=== PATIENT | female | born 1980 | race American Indian/Alaskan Native ===

== ENCOUNTER 2020-03-07 19:27 | Emergency (ER) | payer MEDICAID ==
[2020-03-07] MEDS ORDERED: ASPIRIN 325 MG TAB PO ONE ×2 (19:47→23:35)
[2020-03-07 20:32] LABS: Hematocrit 29.9 % (30.3-42.9); Mean Corpuscular HGB Conc 34 % (30-34); Mean Corpuscular Volume 83 fl (79-97); Platelet Count 403 K/mm3 (140-440); Red Blood Count 3.59 M/mm3 (3.65-5.03); Red Cell Distribution Width 18.9 % (13.2-15.2)
--- NOTE | 2020-03-07 20:41 | XRay Report ---
CHEST 2 VIEWS INDICATION: Sternal chest pain radiating to left arm COMPARISON: FINDINGS: Support devices: None. Heart: Within normal limits. Lungs: No acute air space or interstitial disease. Pleura: No significant pleural effusion. No pneumothorax. Additional findings: None. IMPRESSION: 1. No acute findings. Signer Name: Lion Brian MD Signed: 03/07/2020 8:36 PM Workstation Name: [id number]
[2020-03-07 21:09] LABS: Total Cells Counted 100
[2020-03-07 21:10] LABS: Basophils % (Manual) 0 % (0.0-1.8)
[2020-03-07 21:11] LABS: Blood Urea Nitrogen 9 mg/dL (7-17); Calcium 9.3 mg/dL (8.4-10.2); Hemolysis Index 8; Platelet Estimate Consistent w Auto
[2020-03-07 21:12] LABS: Ovalocytes 2+
[2020-03-07 21:13] LABS: BUN/Creatinine Ratio 18
--- NOTE | 2020-03-07 23:24 | Emergency Department Report ---
ED Chest Pain HPI - General Chief Complaint: Chest Pain Stated Complaint: CHEST PAIN,DIZZINESS,POSS LOW BLOOD Time Seen by Provider: 03/07/20 23:07 Source: patient Mode of arrival: Ambulatory Limitations: No Limitations - History of Present Illness Initial Comments: Patient is 40 years old female with no significant past medical history except for anemia. Patient also reported history of hypertension long time ago but she not taking any medicine for more than 2 to 3 years. Patient stated that she was taking amlodipine. Patient presented to the ER complaining of left-sided chest pain pressure, intermittent associated with palpitation. Patient stated that the she thought this is might be her anemia. Patient also complaining of generalized fatigue headache sometimes. Patient found to have a blood pressure of 161/110 in triage. MD Complaint: chest pain -: days(s) (3) Onset: during rest, during exertion Pain Location: left chest Pain Radiation: LUE Severity: moderate Severity scale (0 -10): 4 Consistency: intermittent - Related Data Allergies Allergy/AdvReac Type Severity Reaction Status Date / Time iron Allergy Anaphylaxis Verified 03/07/20 19:45 Penicillins Allergy Anaphylaxis Verified 03/07/20 19:45 Heart Score - HEART Score History: Slightly suspicious EKG: Normal Age: < 45 Risk factors: 1-2 risk factors Troponin: < normal limit HEART Score: 1 - Critical Actions Critical Actions: 0-3 pts:0.9-1.7%risk of adverse cardiac event.Candidate for discharge ED Review of Systems ROS: Stated complaint: CHEST PAIN,DIZZINESS,POSS LOW BLOOD Other details as noted in HPI Comment: All other systems reviewed and negative Constitutional: denies: chills, fever Respiratory: denies: cough, shortness of breath, SOB with exertion, SOB at rest Cardiovascular: chest pain, palpitations Gastrointestinal: denies: abdominal pain, nausea, vomiting Musculoskeletal: denies: back pain Neurological: denies: headache, weakness, numbness, paresthesias, confusion ED Past Medical Hx - Past Medical History Previous Medical History?: Yes Additional medical history: Elliptocytosis and Blood Transfusion 2017 - Surgical History Past Surgical History?: Yes Additional Surgical History: D&C - Social History Smoking Status: Never Smoker Substance Use Type: None ED Physical Exam - General Limitations: No Limitations General appearance: alert, in no apparent distress - Head Head exam: Present: atraumatic, normocephalic, normal inspection - Eye Eye exam: Present: normal appearance - ENT ENT exam: Present: normal exam, normal orophraynx, mucous membranes moist - Neck Neck exam: Present: normal inspection, full ROM. Absent: tenderness, meningismus - Respiratory Respiratory exam: Present: normal lung sounds bilaterally - Cardiovascular Cardiovascular Exam: Present: regular rate, normal rhythm, normal heart sounds - GI/Abdominal GI/Abdominal exam: Present: soft, normal bowel sounds. Absent: distended, tenderness, guarding, rebound, rigid, organomegaly, mass, bruit, pulsatile mass, hernia - Extremities Exam Extremities exam: Present: normal inspection, full ROM, normal capillary refill. Absent: pedal edema, calf tenderness - Back Exam Back exam: Present: normal inspection, full ROM. Absent: CVA tenderness (R), CVA tenderness (L) - Neurological Exam Neurological exam: Present: alert, oriented X3, CN II-XII intact - Psychiatric Psychiatric exam: Present: normal mood - Skin Skin exam: Present: warm, intact, normal color ED Course Vital Signs 03/07/20 03/07/20 19:48 23:10 Temperature 98.3 F Pulse Rate 98 H 74 Respiratory 18 14 Rate Blood Pressure 161/100 Blood Pressure 153/89 [Left] O2 Sat by Pulse 100 100 Oximetry ED Medical Decision Making - Lab Data Result diagrams: 03/07/20 20:16 03/07/20 20:16 - EKG Data -: EKG Interpreted by Fl EKG shows normal: sinus rhythm Rate: normal - EKG Data Interpretation: no acute changes - Radiology Data Radiology results: report reviewed - Medical Decision Making Patient is 40 years old female with no significant past medical history except for anemia. Patient also reported history of hypertension long time ago but she not taking any medicine for more than 2 to 3 years. Patient stated that she was taking amlodipine. Patient presented to the ER complaining of left-sided chest pain pressure, intermittent associated with palpitation. Patient stated that the she thought this is might be her anemia. Patient also complaining of generalized fatigue headache sometimes. Patient found to have a blood pressure of 161/110 in triage. EKG is normal. Chest x-ray is negative for acute finding. Labs reviewed and is unremarkable including troponin x2. I believe patient symptom is most likely related to her elevated blood pressure however patient strongly advised to follow-up with her primary care physician for outpatient cardiac work-up. Patient also advised to return to the ER if she develop any new symptoms. Critical care attestation.: If time is entered above; I have spent that time in minutes in the direct care of this critically ill patient, excluding procedure time. ED Disposition Clinical Impression: Chest pain, Malignant hypertension Disposition: DC-01 TO HOME OR SELFCARE Is pt being admited?: No Condition: Stable Instructions: Chest Pain (ED), Hypertension (ED), Nonspecific Chest Pain, Adult, Hypertension, Adult Referrals: PRIMARY CARE, [Primary Care Provider] - 3-5 Days
[2020-03-07] MEDS ORDERED: cloNIDine 0.1 MG TAB PO ONE (23:26)
[2020-03-07] MEDS ORDERED: ASPIRIN 325 MG TAB ONE (23:28)
[2020-03-08 00:35] VITALS: BP 149/96
[2020-03-08] MEDS ORDERED: ASPIRIN 325 MG TAB PO SCH (10:00)
== END 2020-03-08 00:20 | disposition home or self-care (01) ==
LOC: ED 19:27
DX: R07.89 Other chest pain (principal); I10 Essential (primary) hypertension; Z88.0 Allergy status to penicillin; Z88.8 Allergy status to other drugs, medicaments and biological substances
CPT/HCPCS: 36415; 71046; 80048; 84484; 85007; 85025; 93005

== ENCOUNTER 2020-10-30 17:41 | Outpatient (CLI) | payer MEDICAID ==
[2020-10-30] MEDS ORDERED: LACTATED RINGERS 500 ML IV ONE (17:56)
[2020-10-30] MEDS ORDERED: ACETAMINOPHEN 500 MG TAB PO ONE (18:48)
[2020-10-30 19:27] LABS: Hematocrit 30.1 % (30.3-42.9); Hemoglobin 9.8 gm/dl (10.1-14.3); Mean Corpuscular HGB Conc 33 % (30-34); Mean Corpuscular Volume 85 fl (79-97); Red Blood Count 3.56 M/mm3 (3.65-5.03); Red Cell Distribution Width 16.9 % (13.2-15.2)
[2020-10-30 19:29] LABS: Platelet Count 268 K/mm3 (140-440)
[2020-10-30 19:30] LABS: Bilirubin,Urine NEG (Negative); Blood,Urine NEG (Negative); Color,Urine Yellow (Yellow); Mucus,Urine 3+ /HPF; Urobilinogen,Urine < 2.0 mg/dL (<2.0)
[2020-10-30 19:38] LABS: Alanine Aminotransferase 23 units/L (7-56); Uric Acid 3.7 mg/dL (3.5-7.6)
[2020-10-30 20:16] VITALS: BP 122/62
--- NOTE | 2020-11-01 17:50 | Electrocardiograph Report ---
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
== END 2020-10-30 20:48 | disposition home or self-care (01) ==
LOC: TRG 17:41 → APU 17:43 → TRG 20:48
PROVIDERS: ATTEND Obstetrics & Gynecology
DX: O13.2 Gestational [pregnancy-induced] hypertension without significant proteinuria, second trimester (principal); Z3A.20 20 weeks gestation of pregnancy
CPT/HCPCS: 36415; 59025; 81001; 82565; 83615; 84450; 84460; 84550; 85027; 93005; J7120

== ENCOUNTER 2020-11-22 22:05 | Outpatient (CLI) | payer MEDICAID ==
[2020-11-22] MEDS ORDERED: LACTATED RINGERS 500 ML IV ONE (22:19)
[2020-11-22] MEDS ORDERED: LACTATED RINGERS 1,000 ML ONE (23:12)
[2020-11-22] MEDS ORDERED: LACTATED RINGERS 1,000 ML IV ONE (23:14)
[2020-11-22 23:15] LABS: Bacteria,Urine 1+ /HPF (Negative); Bilirubin,Urine NEG (Negative); Blood,Urine SM (Negative); Color,Urine Yellow (Yellow); Mucus,Urine 1+ /HPF; Protein,Urine <15 mg/dL mg/dL (Negative); Urobilinogen,Urine < 2.0 mg/dL (<2.0)
[2020-11-22 23:20] VITALS: BP 110/66
[2020-11-23] LABS: Basophils % (Auto) 0.5 % (0.0-1.8); Eosinophils # (Auto) 0.2 K/mm3 (0.0-0.4); Hematocrit 27.6 % (30.3-42.9); Hemoglobin 9.3 gm/dl (10.1-14.3); Lymphocytes # (Auto) 1.7 K/mm3 (1.2-5.4); Lymphocytes % (Auto) 22.9 % (13.4-35.0); Mean Corpuscular HGB Conc 34 % (30-34); Mean Corpuscular Volume 85 fl (79-97); Monocytes # (Auto) 0.6 K/mm3 (0.0-0.8); Monocytes % (Auto) 7.5 % (0.0-7.3); Platelet Count 221 K/mm3 (140-440); Red Blood Count 3.24 M/mm3 (3.65-5.03)
[2020-11-23 00:28] LABS: Alanine Aminotransferase 10 units/L (7-56); Albumin 3.6 g/dL (3.9-5); Blood Urea Nitrogen 8 mg/dL (7-17); Calcium 8.8 mg/dL (8.4-10.2); Hemolysis Index 6
[2020-11-23 00:30] LABS: BUN/Creatinine Ratio 20
--- NOTE | 2020-11-23 01:12 | Event Note ---
Date: 11/23/20 (Pt feeling a little better) Pt is a 40 y.o. @ 24.1 wks. She presented to triage with c/o right upper abdominal pain and feeling tired. IV fluids and Pepcid ordered and given. An ultrasound of her gallbladder showed that she has a possible gallstone. After IV fluids and Pepcid pt states that she feels somewhat better. During her triage stay, her monitor tracing was appropriate for gestational age, no contractions noted. She denies ctxs, vaginal bleeding, LOF. Encouraged patient to keep follow up in the office. Number for GI ([facility]) provided and patient to make an appointment. She has a follow up OB appointment in the office on November 27, 2020 @ 0930am. Pt encouraged to keep this appointment.
[2020-11-23] MEDS ORDERED: FAMOTIDINE 20 MG/2 ML INJ IV ONE ×2 (01:15→22:42)
--- NOTE | 2020-11-23 04:19 | Ultrasound Report ---
ULTRASOUND ABDOMEN, LIMITED (RIGHT UPPER QUADRANT) INDICATION: with upper abdominal pain.. COMPARISON: None available. FINDINGS: Pancreas: Visualized portion shows no significant abnormality. Liver: No significant abnormality. Gallbladder: There is cholelithiasis without sonographic evidence of acute cholecystitis. Sonographi c Shafer's sign: Not performed. Bile ducts: No significant abnormality. Common Bile Duct measures 3.1 mm. Free fluid: None. Additional Findings: None. IMPRESSION: Cholelithiasis without sonographic evidence of acute cholecystitis or other significant abnormalities . Signer Name: Elton Jonas MD Signed: 11/23/2020 4:15 AM Workstation Name: [id number]
== END 2020-11-23 01:33 | disposition home or self-care (01) ==
LOC: TRG 22:05 → APU 22:06 → TRG 11-23 01:33
PROVIDERS: ATTEND Obstetrics & Gynecology
DX: O99.612 Diseases of the digestive system complicating pregnancy, second trimester (principal); K80.20 Calculus of gallbladder without cholecystitis without obstruction; O26.892 Other specified pregnancy related conditions, second trimester; R51.9 Headache, unspecified; O26.52 Maternal hypotension syndrome, second trimester; O99.012 Anemia complicating pregnancy, second trimester; D64.9 Anemia, unspecified; O99.342 Other mental disorders complicating pregnancy, second trimester; F41.9 Anxiety disorder, unspecified; F32.9 Major depressive disorder, single episode, unspecified; Z3A.24 24 weeks gestation of pregnancy
CPT/HCPCS: 36415; 59025; 76705; 80053; 81001; 85025; 96360; 96365; J7120; 96374

== ENCOUNTER 2021-02-05 12:49 | Outpatient (CLI) | payer MEDICAID ==
[2021-02-05] MEDS ORDERED: LACTATED RINGERS 500 ML IV ONE (13:53)
[2021-02-05 15:22] VITALS: BP 119/72
--- NOTE | 2021-02-05 16:56 | Ultrasound Report ---
ULTRASOUND OBSTETRIC LIMITED ULTRASOUND BIOPHYSICAL PROFILE INDICATION / CLINICAL INFORMATION: decreased movement. COMPARISON: None available. FINDINGS: BREATHING MOVEMENT = 2 GROSS BODY MOVEMENT = 2 TONE = 2 QUALITATIVE AMNIOTIC FLUID VOLUME = 2 TOTAL BIOPHYSICAL SCORE = 8/8 AMNIOTIC FLUID INDEX (cm) = 10.5 PRESENTATION: Cephalic. HEART RATE (beats per minute): 154 ADDITIONAL FINDINGS: None. IMPRESSION: 1. Biophysical Score = 8/8 Signer Name: Elton Jonas MD Signed: 02/05/2021 4:52 PM Workstation Name: [id number]
== END 2021-02-05 16:00 | disposition home or self-care (01) ==
LOC: TRG 12:49 → APU 12:51 → TRG 16:00
PROVIDERS: ATTEND Obstetrics & Gynecology
DX: Z34.93 Encounter for supervision of normal pregnancy, unspecified, third trimester (principal); Z3A.34 34 weeks gestation of pregnancy
CPT/HCPCS: 59025; 76815; 76819

== ENCOUNTER 2021-02-21 09:31 | Inpatient (IN) | payer MEDICAID ==
--- NOTE | 2021-02-21 09:53 | History and Physical Report ---
History of Present Illness Date of examination: 02/21/21 Date of admission: 02/21/2021 Chief complaint: scheduled induction History of present illness: EDC Confirmation: 03/14/2021 Past History : 7 Term Births: 4 Premature Births: 1 Living Children: 5 Para: 5 Mult. Births: 0 Prev : 0 Prev. attempt? 0 Aborta: 1 Elect. Ab: 0 Spont. Ab: 1 Ectopics: 0 # 1 Delivery date: 1998 Weeks Gestation: 38 labor: no Delivery type: Sex: Male weight: 6lbs Comments: IOL for PIH # 2 Delivery date: 2004 Weeks Gestation: 36 labor: yes Delivery type: Delivery location: [facility] Infant Sex: Female weight: 5-13 # 3 Delivery date: 2007 Weeks Gestation: 39 labor: no Delivery type: Sex: Female weight: 7lbs # 4 Delivery date: 04/2009 Delivery type: SAB Comments: D&C # 5 Delivery date: 2010 Weeks Gestation: FT labor: no Delivery type: Sex: Female weight: 8lbs Comments: pt states she had to receive 4 units of RBCs after this del kalina and that she also had "very high BP" # 6 Delivery date: 02/16/2012 Weeks Gestation: 40 Delivery type: Vaginal Anesthesia type: epidural Delivery location: [facility] Infant Sex: female weight: 8.69 Comments: anemia Risk Factors: Smoked Tobacco Use: Never smoker Smokeless Tobacco Use: Never Passive smoke exposure: no Drug use: no HIV high-risk behavior: low risk Caffeine use: 1 drinks per day Alcohol use: no Seatbelt use: 100 % Dietary Counseling: pn yes Past Medical History: Blood Transfusions several last one 2018 elliptocytosis Hypertension Gallstones Ovarian Cysts Past Medical History Abnormal PAP: negative JACQUE Exposure: negative Infertility: negative Uterine Anomaly: negative Uterine Surgery (not C/S): negative Other Gynecologic Problems: negative Social Hx: Patient is Smoking History: Patient has never smoked. Infection History Hx of STD: none HIV Risk Eval: low risk Hepatitis B Risk Eval: low risk Personal hx. of genital herpes: yes Partner hx. of genital herpes: yes Rash, Viral, or Febrile illness since last LMP? no Varicella/Chicken Pox Status: Previous Disease TB Risk: no Genetic History ADVANCED MATERNAL AGE Congenital Heart Defect: Mom: no Dad: no Kelsea Disease: Mom: no Dad: no Thalassemia Mom: no Dad: no Neural Tube Defect Mom: no Dad: no Down's Syndrome Mom: no Dad: no Rolando-Sachs Mom: no Dad: no Sickle Cell Disease/Trait Mom: no Dad: no Hemophilia Mom: no Dad: no Muscular Dystrophy Mom: no Dad: no Cystic Fibrosis Mom: no Dad: no Ilir Chorea Mom: no Dad: no Mental Retardation Mom: no Dad: no Fragile X Mom: no Dad: no Other Genetic/Chromosomal Disorder Mom: no Dad: no Child w/other defect Mom: no Dad: no Enviromental Exposures Xray Exposure: no Medication, drug, or alcohol use since LMP: no Chemical/Other Exposure: no Exposure to Cat Liter: no Hx of Parvovirus (Fifth Disease): no Occupational Exposure to Children: none Past History Past Medical History: hypertension, blood transfusion, other (see HPI) Past Surgical History: D&C, other (see HPI) [employer] History: herpes, other (see HPI) Family/Genetic History: other (see HPI) Social history: other (see HPI) - Obstetrical History Expected Date of Delivery: 03/14/21 Actual Gestation: 37 Week(s) 0 Day(s) : 7 Para: 5 Hx # Term Pregnancies: 4 Number of Pregnancies: 1 Spontaneous Abortions: 1 Induced : 0 Number of Living Children: 5 Medications and Allergies Allergies Allergy/AdvReac Type Severity Reaction Status Date / Time iron Allergy Anaphylaxis Verified 03/07/20 19:45 Penicillins Allergy Anaphylaxis Verified 03/07/20 19:45 labetalol Allergy Hives Uncoded 02/21/21 13:49 Home Medications Medication Instructions Recorded Confirmed Last Taken Type amLODIPine 5 mg PO DAILY #30 tab 03/07/20 Unknown Rx Nitrofurantoin [place]/M-Cryst 100 mg PO Q12HR #10 capsule 11/23/20 Unknown Rx [Macrobid CAP] Active Meds: Active Medications Acetaminophen (Acetaminophen 325 Mg Tab) 650 mg PO Q4H PRN PRN Reason: Pain, Mild (1-3) Butorphanol Tartrate (Butorphanol 2 Mg/1 Ml Inj) 2 mg IV Q2H PRN PRN Reason: Pain , Severe (7-10) Carboprost Tromethamine (Carboprost Tromethamine 250 Mcg/1 Ml Inj) 250 mcg IM ONCE PRN PRN Reason: Uterine Bleeding Ephedrine Sulfate (Ephedrine Sulfate 50 Mg/1 Ml Inj) 10 mg IV Q2M PRN PRN Reason: Hypotension Oxytocin/Sodium Chloride (Pitocin/Ns 30 Unit/500ml) 30 units in 500 mls @ 2 mls/hr IV TITR SETH; Protocol Lactated Ringer's (Lactated Ringers) 1,000 mls @ 125 mls/hr IV DIRECT SETH Oxytocin/Sodium Chloride (Pitocin/Ns 30 Unit/500ml) 30 units in 500 mls @ 40 mls/hr IV TITR SETH; Protocol Lidocaine (Lidocaine (2%) 20 Mg/1 Ml Vial 20 Ml Mdv) 20 ml INFILTRATI ONCE ONE Stop: 02/21/21 09:43 Loperamide HCl (Loperamide 2 Mg Cap) 2 mg PO ONCE PRN PRN Reason: give with Hemabate Mineral Oil (Mineral Oil 30 Ml Oral Liqd) 30 ml PO QHS PRN PRN Reason: Constipation Misoprostol (Misoprostol 200 Mcg Tab) 800 mcg NJ ONCE PRN PRN Reason: Uterine Bleeding Nalbuphine HCl (Nalbuphine 10 Mg/1 Ml Inj) 10 mg IV Q2H PRN PRN Reason: Pain, Moderate (4-6) Naloxone HCl (Naloxone 0.4 Mg/1 Ml Inj) 0.1 mg IV Q2MIN PRN PRN Reason: Res Rate </= 8 or 02 SAT < 92% Ondansetron HCl (Ondansetron 4 Mg/2 Ml Inj) 4 mg IV Q8H PRN PRN Reason: Nausea And Vomiting Oxytocin (Oxytocin 10 Unit/1 Ml Inj) 10 unit IM ONCE PRN PRN Reason: Uterine Bleeding Promethazine HCl (Promethazine 25 Mg Tab) 25 mg PO Q6H PRN PRN Reason: Nausea And Vomiting Terbutaline Sulfate (Terbutaline 1 Mg/1 Ml Inj) 0.25 mg SUB-Q ONCE PRN PRN Reason: Hyperstimulation/Hypertonicity Review of Systems All systems: negative Ears, nose, mouth and throat: headache - Physical Exam Breasts: Positive: deferred Cardiovascular: Regular rate Lungs: Positive: Normal air movement Abdomen: Positive: normal appearance, soft. Negative: tenderness, guarding, rigidity Genitourinary (Female): Positive: normal external genitalia, normal perenium Vulva: both: normal Vagina: Positive: normal moisture Uterus: Positive: normal size, normal contour, other (gravid) Anus/Rectum: Positive: normal perianal skin Extremities: Positive: normal - Obstetrical FHR: auscultation normal, category 1 Uterine Contraction Monitor Mode: External Cervical Dilatation: 1 (per Dr. Ding's exam) Cervical Effacement Percentage: 50 station: -3 Uterine Contraction Pattern: Irregular Uterine Tone Measurement Phase: Resting Results Result Diagrams: 02/21/21 10:36 02/21/21 10:36 All other labs normal. Tests: (1) RPR, Rfx Qn RPR/Confirm TP (998154) RPR Non Reactive Non Reactive *1 Tests: (2) HIV Ag/Ab with Reflex ([id number]) HIV Screen 4th Generation wRfx Non Reactive Non Reactive *2 Tests: (1) Ct, Ng, Trich vag by LARISSA ([id number]) Order Note: Clinical Information: SRC:VR SRC:UR Chlamydia by LARISSA Negative Negative *1 Gonococcus by LARISSA Negative Negative *2 Trich vag by LARISSA Negative Negative *3 Tests: (2) Strep Gp B LARISSA ([id number]) ! Strep Gp B LARISSA Negative Negative *4 Tests: (1) Profile I ([id number]) Order Note: Clinical Information: SRC:UR HBsAg Screen Negative Negative *1 RPR Non Reactive Non Reactive *2 Rubella Antibodies, IgG 3.87 index Immune >0.99 *3 Non-immune <0.90 Equivocal 0.90 - 0.99 Immune >0.99 ABO Grouping O *4 Rh Factor Positive *5 Please note: Prior records for this patient's ABO / Rh type are not available for additional verification. Antibody Screen Negative Negative *6 WBC 4.6 x10E3/uL 3.4-10.8 *7 RBC [L] 3.34 x10E6/uL 3.77-5.28 *8 Hemoglobin [L] 9.1 g/dL 11.1-15.9 *9 Hematocrit [L] 28.3 % 34.0-46.6 *10 MCV 85 fL 79-97 *11 MCH 27.2 pg 26.6-33.0 *12 MCHC 32.2 g/dL 31.5-35.7 *13 RDW [H] 18.1 % 11.7-15.4 *14 Platelets 374 x10E3/uL 150-450 *15 Neutrophils 73 % Not Estab. *16 Lymphs 18 % Not Estab. *17 Monocytes 7 % Not Estab. *18 Eos 2 % Not Estab. *19 Basos 0 % Not Estab. *20 ! Immature Cells <No Reported Value> *21 Neutrophils (Absolute) 3.3 x10E3/uL 1.4-7.0 *22 Lymphs (Absolute) 0.8 x10E3/uL 0.7-3.1 *23 Monocytes(Absolute) 0.3 x10E3/uL 0.1-0.9 *24 Eos (Absolute) 0.1 x10E3/uL 0.0-0.4 *25 Baso (Absolute) 0.0 x10E3/uL 0.0-0.2 *26 ! Immature Granulocytes 0 % Not Estab. *27 ! Immature Grans (Abs) 0.0 x10E3/uL 0.0-0.1 *28 ! NRBC <No Reported Value> *29 Hematology Comments: <No Reported Value> *30 Tests: (2) HB Solu + Rflx Fra ([id number]) Hemoglobin (Hgb) Solubility Negative Negative *31 Tests: (3) HIV Ag/Ab with Reflex ([id number]) HIV Screen 4th Generation wRfx Non Reactive Non Reactive *32 Tests: (4) Gest. Diabetes 1-Hr Screen ([id number]) ! Gestational Diabetes Screen 122 mg/dL 65-139 *33 According to ADA, a glucose threshold of >139 mg/dL after 50-gram load identifies approximately 80% of women with gestational diabetes mellitus, while the sensitivity is further increased to approximately 90% by a threshold of >129 mg/dL. Tests: (5) HCV Ab w/Rflx to Verification ([id number]) ! HCV Ab <0.1 s/co ratio 0.0-0.9 *34 Tests: (6) Comment: ([id number]) ! Comment: SPR *35 Non reactive HCV antibody screen is consistent with no HCV infection, unless recent infection is suspected or other evidence exists to indicate HCV infection. Tests: (7) Urine Culture, Routine ([id number]) Urine Culture, Routine Final report *36 Tests: (8) Result ([id number]) ! Result 1 "Result Below..." *37 RESULT: Lactobacillus species 25,000-50,000 colony forming units per mL Susceptibility not normally performed on this organism. Performed At: , [facility] [address] [id number] Fco Goodwin MD Phone: [phone] Assessment and Plan Pt presents for scheduled IOL recommended by [facility] for preeclampsia. GBS negative. POC d/w pt. Questions encouraged. No questions voiced. Pt verbalizes understanding and agrees to POC. Orders placed. Dr. Ding aware. - Patient Problems (1) 37 weeks gestation of Current Visit: Yes Status: Acute (2) Elderly multigravida Current Visit: Yes Status: Acute Plan to address problem: continuous efm and toco placenta to be sent to pathology after delivery (3) Chronic hypertension with superimposed preeclampsia Current Visit: Yes Status: Acute Plan to address problem: Home medication: Amlodipine 5mg PO PRN, pt reports last dose taken 2 months ago preeclampsia labs ordered monitor closely for ssx of worsening notify provider with any changes in status and if BP >160 systolic or >100 diastolic Hydralazine IV to be ordered if BP >160/100 (4) Hereditary elliptocytosis Current Visit: Yes Status: Acute
[2021-02-21] MEDS ORDERED: NalbUPHINE 10 MG/1 ML INJ IV PRN (10:00)
[2021-02-21] MEDS ORDERED: MINERAL OIL 30 ML ORAL LIQD PO PRN (10:00)
[2021-02-21] MEDS ORDERED: miSOPROStol 200 MCG TAB PR PRN (10:00)
[2021-02-21] MEDS ORDERED: CARBOPROST TROMETHAMINE 250 MCG/1 ML INJ IM PRN (10:00)
[2021-02-21] MEDS ORDERED: OXYTOCIN 10 UNIT/1 ML INJ IM PRN (10:00)
[2021-02-21] MEDS ORDERED: LOPERAMIDE 2 MG CAP PO PRN (10:00)
[2021-02-21] MEDS ORDERED: NALOXONE 0.4 MG/1 ML INJ IV PRN (10:00)
[2021-02-21] MEDS ORDERED: ePHEDrine SULFATE 50 MG/1 ML INJ IV PRN (10:00)
[2021-02-21] MEDS ORDERED: LIDOCAINE (2%) 20 MG/1 ML VIAL 20 ML MDV INFILTRATI SCH (10:00)
[2021-02-21] MEDS ORDERED: ACETAMINOPHEN 325 MG TAB PO PRN (10:00)
[2021-02-21] MEDS ORDERED: PROMETHAZINE 25 MG TAB PO PRN (10:00)
[2021-02-21] MEDS ORDERED: BUTORPHANOL 2 MG/1 ML INJ IV PRN (10:00)
[2021-02-21] MEDS ORDERED: OXYTOCIN DRIP 30 UNITS/500 ML BAG IV SCH (10:00)
[2021-02-21] MEDS ORDERED: TERBUTALINE 1 MG/1 ML INJ SUB-Q PRN (10:00)
[2021-02-21] MEDS ORDERED: ONDANSETRON 4 MG/2 ML INJ IV PRN (10:00)
[2021-02-21 11:06] LABS: Hemoglobin 9.5 gm/dl (10.1-14.3); Mean Corpuscular HGB Conc 33 % (30-34); Mean Corpuscular Volume 85 fl (79-97); Platelet Count 192 K/mm3 (140-440); Red Cell Distribution Width 16.9 % (13.2-15.2)
[2021-02-21 11:29] LABS: Alanine Aminotransferase 7 units/L (7-56); Uric Acid 3.8 mg/dL (3.5-7.6)
--- NOTE | 2021-02-21 11:30 | Event Note ---
Date: 02/21/21 Pt seen and evaluated d/w serial iol. BP currently in normal range. Will closely monitor and will start magnesium either with sever range blood pressures or active labor which ever one presents first. I discussed this with pt and and she expressed understanding. cx: /-3/post/ soft
[2021-02-21] MEDS: OXYTOCIN DRIP 30 UNITS/500 ML BAG IV SCH (14:00)
--- NOTE | 2021-02-21 18:36 | Progress Note ---
Assessment and Plan VSSAF; Pt resting. Reports regular contractions. SVE unchanged. FHT's Cat 1. POC d/w pt. Questions encouraged and addressed. Pt verbalizes understanding and agrees to POC. LOIS Blackwell notified. Please turn off Pitocin. Pt may shower and eat dinner. Place cervidil per protocol. - Patient Problems (1) 37 weeks gestation of Current Visit: Yes Status: Acute (2) Elderly multigravida Current Visit: Yes Status: Acute Plan to address problem: continuous efm and toco placenta to be sent to pathology after delivery (3) Chronic hypertension with superimposed preeclampsia Current Visit: Yes Status: Acute Plan to address problem: Home medication: Amlodipine 5mg PO PRN, pt reports last dose taken 2 months ago preeclampsia labs done monitor closely for ssx of worsening notify provider with any changes in status and if BP >160 systolic or >100 diastolic Hydralazine IV to be ordered if BP >160/100 (4) Hereditary elliptocytosis Current Visit: Yes Status: Acute (5) History of herpes simplex infection Current Visit: Yes Status: Acute Plan to address problem: valtrex ordered for HSV prophylaxis tx Subjective - Subjective Date of service: 02/21/21 Principal diagnosis: IUP @37wks, IOL for CHTN with superimposed Pre-eclampsia Interval history: EDC Confirmation: 03/14/2021 Past History : 7 Term Births: 4 Premature Births: 1 Living Children: 5 Para: 5 Mult. Births: 0 Prev : 0 Prev. attempt? 0 Aborta: 1 Elect. Ab: 0 Spont. Ab: 1 Ectopics: 0 # 1 Delivery date: 1998 Weeks Gestation: 38 labor: no Delivery type: Sex: Male weight: 6lbs Comments: IOL for PIH # 2 Delivery date: 2004 Weeks Gestation: 36 labor: yes Delivery type: Delivery location: [facility] Infant Sex: Female weight: 5-13 # 3 Delivery date: 2007 Weeks Gestation: 39 labor: no Delivery type: Sex: Female weight: 7lbs # 4 Delivery date: 04/2009 Delivery type: SAB Comments: D&C # 5 Delivery date: 2010 Weeks Gestation: FT labor: no Delivery type: Sex: Female weight: 8lbs Comments: pt states she had to receive 4 units of RBCs after this delivery and that she also had "very high BP" # 6 Delivery date: 02/16/2012 Weeks Gestation: 40 Delivery type: Vaginal Anesthesia type: epidural Delivery location: [facility] Infant Sex: female weight: 8.69 Comments: anemia Risk Factors: Smoked Tobacco Use: Never smoker Smokeless Tobacco Use: Never Passive smoke exposure: no Drug use: no HIV high-risk behavior: low risk Caffeine use: 1 drinks per day Alcohol use: no Seatbelt use: 100 % Dietary Counseling: pn yes Past Medical History: Blood Transfusions several last one 2018 elliptocytosis Hypertension Gallstones Ovarian Cysts Past Medical History Abnormal PAP: negative JACQUE Exposure: negative Infertility: negative Uterine Anomaly: negative Uterine Surgery (not C/S): negative Other Gynecologic Problems: negative Social Hx: Patient is Smoking History: Patient has never smoked. Infection History Hx of STD: none HIV Risk Eval: low risk Hepatitis B Risk Eval: low risk Personal hx. of genital herpes: yes Partner hx. of genital herpes: yes Rash, Viral, or Febrile illness since last LMP? no Varicella/Chicken Pox Status: Previous Disease TB Risk: no Genetic History ADVANCED MATERNAL AGE Congenital Heart Defect: Mom: no Dad: no Kelsea Disease: Mom: no Dad: no Thalassemia Mom: no Dad: no Neural Tube Defect Mom: no Dad: no Down's Syndrome Mom: no Dad: no Rolando-Sachs Mom: no Dad: no Sickle Cell Disease/Trait Mom: no Dad: no Hemophilia Mom: no Dad: no Muscular Dystrophy Mom: no Dad: no Cystic Fibrosis Mom: no Dad: no Ilir Chorea Mom: no Dad: no Mental Retardation Mom: no Dad: no Fragile X Mom: no Dad: no Other Genetic/Chromosomal Disorder Mom: no Dad: no Child w/other defect Mom: no Dad: no Enviromental Exposures Xray Exposure: no Medication, drug, or alcohol use since LMP: no Chemical/Other Exposure: no Exposure to Cat Liter: no Hx of Parvovirus (Fifth Disease): no Occupational Exposure to Children: none Patient reports: movement normal, contractions, no new complaints, no loss of fluid, no vaginal bleeding Objective - Vital Signs Vital Signs: Vital Signs - 12hr 02/21/21 02/21/21 02/21/21 10:27 10:32 10:37 Temperature Pulse Rate 87 82 79 Respiratory Rate Blood Pressure Blood Pressure [Left] O2 Sat by Pulse 100 100 100 Oximetry O2 Sat by Pulse Oximetry [ Bilateral] 02/21/21 02/21/21 02/21/21 10:42 11:03 11:08 Temperature Pulse Rate 83 82 75 Respiratory Rate Blood Pressure 136/74 Blood Pressure [Left] O2 Sat by Pulse 100 100 99 Oximetry O2 Sat by Pulse Oximetry [ Bilateral] 02/21/21 02/21/21 02/21/21 11:13 11:18 11:23 Temperature Pulse Rate 83 78 79 Respiratory Rate Blood Pressure 122/61 Blood Pressure [Left] O2 Sat by Pulse 100 99 100 Oximetry O2 Sat by Pulse Oximetry [ Bilateral] 02/21/21 02/21/21 02/21/21 11:28 11:33 11:38 Temperature Pulse Rate 82 79 79 Respiratory Rate Blood Pressure 117/60 Blood Pressure [Left] O2 Sat by Pulse 99 99 99 Oximetry O2 Sat by Pulse Oximetry [ Bilateral] 02/21/21 02/21/21 02/21/21 11:43 11:48 11:50 Temperature Pulse Rate 80 85 81 Respiratory Rate Blood Pressure 131/65 Blood Pressure [Left] O2 Sat by Pulse 100 99 Oximetry O2 Sat by Pulse Oximetry [ Bilateral] 02/21/21 02/21/21 02/21/21 11:53 11:58 12:02 Temperature Pulse Rate 85 86 80 Respiratory Rate Blood Pressure 127/62 Blood Pressure [Left] O2 Sat by Pulse 99 99 Oximetry O2 Sat by Pulse Oximetry [ Bilateral] 02/21/21 02/21/21 02/21/21 12:03 12:08 12:13 Temperature Pulse Rate 82 73 80 Respiratory Rate Blood Pressure Blood Pressure [Left] O2 Sat by Pulse 98 100 99 Oximetry O2 Sat by Pulse Oximetry [ Bilateral] 02/21/21 02/21/21 02/21/21 12:17 12:18 12:23 Temperature 98.1 F Pulse Rate 75 75 74 Respiratory 20 Rate Blood Pressure 131/65 Blood Pressure 131/65 [Left] O2 Sat by Pulse 100 94 Oximetry O2 Sat by Pulse Oximetry [ Bilateral] 02/21/21 02/21/21 02/21/21 12:28 12:31 12:33 Temperature Pulse Rate 79 83 82 Respiratory Rate Blood Pressure 138/79 Blood Pressure [Left] O2 Sat by Pulse 100 94 98 Oximetry O2 Sat by Pulse Oximetry [ Bilateral] 02/21/21 02/21/21 02/21/21 12:38 12:42 12:43 Temperature Pulse Rate 78 73 Respiratory Rate Blood Pressure Blood Pressure [Left] O2 Sat by Pulse 100 100 Oximetry O2 Sat by Pulse 100 Oximetry [ Bilateral] 02/21/21 02/21/21 02/21/21 12:48 12:53 12:58 Temperature Pulse Rate 79 72 73 Respiratory Rate Blood Pressure Blood Pressure [Left] O2 Sat by Pulse 100 100 100 Oximetry O2 Sat by Pulse Oximetry [ Bilateral] 02/21/21 02/21/21 02/21/21 13:00 13:03 13:08 Temperature Pulse Rate 88 69 69 Respiratory Rate Blood Pressure Blood Pressure [Left] O2 Sat by Pulse 90 100 100 Oximetry O2 Sat by Pulse Oximetry [ Bilateral] 02/21/21 02/21/21 02/21/21 13:13 13:18 13:26 Temperature Pulse Rate 68 72 84 Respiratory Rate Blood Pressure Blood Pressure [Left] O2 Sat by Pulse 100 100 95 Oximetry O2 Sat by Pulse Oximetry [ Bilateral] 02/21/21 02/21/21 02/21/21 13:31 13:36 13:41 Temperature Pulse Rate 69 66 68 Respiratory Rate Blood Pressure Blood Pressure [Left] O2 Sat by Pulse 100 100 100 Oximetry O2 Sat by Pulse Oximetry [ Bilateral] 02/21/21 02/21/21 02/21/21 13:46 13:51 13:56 Temperature Pulse Rate 69 75 90 Respiratory Rate Blood Pressure Blood Pressure [Left] O2 Sat by Pulse 100 100 100 Oximetry O2 Sat by Pulse Oximetry [ Bilateral] 02/21/21 02/21/21 02/21/21 14:01 14:03 14:06 Temperature Pulse Rate 79 79 82 Respiratory Rate Blood Pressure 137/78 Blood Pressure [Left] O2 Sat by Pulse 100 100 Oximetry O2 Sat by Pulse Oximetry [ Bilateral] 02/21/21 02/21/21 02/21/21 14:11 14:16 14:18 Temperature Pulse Rate 74 84 82 Respiratory Rate Blood Pressure 133/80 Blood Pressure [Left] O2 Sat by Pulse 100 99 Oximetry O2 Sat by Pulse Oximetry [ Bilateral] 02/21/21 02/21/21 02/21/21 14:21 14:26 14:30 Temperature 98.2 F Pulse Rate 72 77 Respiratory Rate Blood Pressure Blood Pressure [Left] O2 Sat by Pulse 100 99 Oximetry O2 Sat by Pulse Oximetry [ Bilateral] 02/21/21 02/21/21 02/21/21 14:31 14:36 14:41 Temperature Pulse Rate 82 81 84 Respiratory Rate Blood Pressure Blood Pressure [Left] O2 Sat by Pulse 99 100 100 Oximetry O2 Sat by Pulse Oximetry [ Bilateral] 02/21/21 02/21/21 02/21/21 14:46 14:48 14:51 Temperature Pulse Rate 83 80 83 Respiratory Rate Blood Pressure 117/56 Blood Pressure [Left] O2 Sat by Pulse 100 100 Oximetry O2 Sat by Pulse Oximetry [ Bilateral] 02/21/21 02/21/21 02/21/21 14:56 15:01 15:02 Temperature Pulse Rate 83 82 82 Respiratory Rate Blood Pressure 117/57 Blood Pressure [Left] O2 Sat by Pulse 100 100 Oximetry O2 Sat by Pulse Oximetry [ Bilateral] 02/21/21 02/21/21 02/21/21 15:06 15:11 15:16 Temperature Pulse Rate 81 90 80 Respiratory Rate Blood Pressure Blood Pressure [Left] O2 Sat by Pulse 100 100 99 Oximetry O2 Sat by Pulse Oximetry [ Bilateral] 02/21/21 02/21/21 02/21/21 15:17 15:21 15:31 Temperature Pulse Rate 83 86 84 Respiratory Rate Blood Pressure 111/57 Blood Pressure [Left] O2 Sat by Pulse 99 100 Oximetry O2 Sat by Pulse Oximetry [ Bilateral] 02/21/21 02/21/21 02/21/21 15:33 15:36 15:41 Temperature Pulse Rate 83 77 72 Respiratory Rate Blood Pressure 134/74 Blood Pressure [Left] O2 Sat by Pulse 100 100 Oximetry O2 Sat by Pulse Oximetry [ Bilateral] 02/21/21 02/21/21 02/21/21 15:46 15:49 15:51 Temperature Pulse Rate 76 76 78 Respiratory Rate Blood Pressure 130/69 Blood Pressure [Left] O2 Sat by Pulse 99 99 Oximetry O2 Sat by Pulse Oximetry [ Bilateral] 02/21/21 02/21/21 02/21/21 15:56 16:01 16:03 Temperature Pulse Rate 78 89 82 Respiratory Rate Blood Pressure 116/63 Blood Pressure [Left] O2 Sat by Pulse 99 98 Oximetry O2 Sat by Pulse Oximetry [ Bilateral] 02/21/21 02/21/21 02/21/21 16:06 16:11 16:16 Temperature Pulse Rate 89 86 75 Respiratory Rate Blood Pressure Blood Pressure [Left] O2 Sat by Pulse 99 100 100 Oximetry O2 Sat by Pulse Oximetry [ Bilateral] 02/21/21 02/21/21 02/21/21 16:17 16:21 16:29 Temperature Pulse Rate 80 83 78 Respiratory Rate Blood Pressure 127/69 Blood Pressure [Left] O2 Sat by Pulse 100 100 Oximetry O2 Sat by Pulse Oximetry [ Bilateral] 02/21/21 02/21/21 02/21/21 16:34 16:39 16:44 Temperature Pulse Rate 75 76 76 Respiratory Rate Blood Pressure Blood Pressure [Left] O2 Sat by Pulse 100 100 100 Oximetry O2 Sat by Pulse Oximetry [ Bilateral] 02/21/21 02/21/21 02/21/21 16:48 16:49 16:54 Temperature Pulse Rate 70 81 82 Respiratory Rate Blood Pressure 126/70 Blood Pressure [Left] O2 Sat by Pulse 100 100 Oximetry O2 Sat by Pulse Oximetry [ Bilateral] 02/21/21 02/21/21 02/21/21 16:59 17:03 17:04 Temperature Pulse Rate 76 82 86 Respiratory Rate Blood Pressure 151/80 Blood Pressure [Left] O2 Sat by Pulse 100 100 Oximetry O2 Sat by Pulse Oximetry [ Bilateral] 02/21/21 02/21/21 02/21/21 17:09 17:14 17:19 Temperature Pulse Rate 79 78 91 H Respiratory Rate Blood Pressure 125/74 Blood Pressure [Left] O2 Sat by Pulse 100 100 100 Oximetry O2 Sat by Pulse Oximetry [ Bilateral] 02/21/21 02/21/21 02/21/21 17:24 17:29 17:34 Temperature Pulse Rate 82 89 83 Respiratory Rate Blood Pressure 130/64 Blood Pressure [Left] O2 Sat by Pulse 100 99 98 Oximetry O2 Sat by Pulse Oximetry [ Bilateral] 02/21/21 02/21/21 02/21/21 17:39 17:44 17:48 Temperature Pulse Rate 83 80 80 Respiratory Rate Blood Pressure 133/66 Blood Pressure [Left] O2 Sat by Pulse 99 99 Oximetry O2 Sat by Pulse Oximetry [ Bilateral] 02/21/21 02/21/21 02/21/21 17:49 17:54 17:59 Temperature Pulse Rate 79 76 77 Respiratory Rate Blood Pressure Blood Pressure [Left] O2 Sat by Pulse 100 100 99 Oximetry O2 Sat by Pulse Oximetry [ Bilateral] 02/21/21 02/21/21 02/21/21 18:02 18:04 18:09 Temperature Pulse Rate 76 77 75 Respiratory Rate Blood Pressure 123/60 Blood Pressure [Left] O2 Sat by Pulse 99 99 Oximetry O2 Sat by Pulse Oximetry [ Bilateral] 02/21/21 02/21/21 02/21/21 18:14 18:19 18:24 Temperature Pulse Rate 78 74 75 Respiratory Rate Blood Pressure 135/74 Blood Pressure [Left] O2 Sat by Pulse 99 99 99 Oximetry O2 Sat by Pulse Oximetry [ Bilateral] 02/21/21 18:29 Temperature Pulse Rate 75 Respiratory Rate Blood Pressure Blood Pressure [Left] O2 Sat by Pulse 100 Oximetry O2 Sat by Pulse Oximetry [ Bilateral] - Exam Breasts: deferred Cardiovascular: Regular rate Lungs: Normal air movement Abdomen: Present: normal appearance, soft Vulva: both: normal Uterus: Present: normal, other (gravid) FHR: auscultation normal, category 1 Uterine Contraction Monitor Mode: External Cervical Dilatation: 1 Cervical Effacement Percentage: 50 station: -3 Uterine Contraction Frequency (min): 2 Uterine Contraction Pattern: Regular Uterine Tone Measurement Phase: Resting Extremities: normal - Labs Labs: Abnormal Labs 02/21/21 02/21/21 10:36 10:36 RBC 3.40 L Hgb 9.5 L Hct 29.0 L RDW 16.9 H Creatinine 0.3 L Lactate Dehydrogenase 342 H Laboratory Results - last 24 hr 02/21/21 02/21/21 02/21/21 10:36 10:36 10:36 WBC 5.0 RBC 3.40 L Hgb 9.5 L Hct 29.0 L MCV 85 MCH 28 MCHC 33 RDW 16.9 H Plt Count 192 Creatinine Estimated GFR Uric Acid AST ALT Lactate Dehydrogenase Syphilis IgG Antibody Nonreactive Blood Type O POSITIVE Antibody Screen Negative 02/21/21 10:36 WBC RBC Hgb Hct MCV MCH MCHC RDW Plt Count Creatinine 0.3 L Estimated GFR > 60 Uric Acid 3.8 AST 20 ALT 7 Lactate Dehydrogenase 342 H Syphilis IgG Antibody Blood Type Antibody Screen
[2021-02-21] MEDS ORDERED: DINOPROSTONE 10 MG VAG SUPP VG ONE (20:30)
[2021-02-21] MEDS ORDERED: valACYclovir 500 MG TAB PO SCH (22:00)
[2021-02-22] MEDS ORDERED: BICITRA ORAL LIQD 30ML PO ONE (02:32)
[2021-02-22] MEDS ORDERED: ACETAMINOPHEN 500 MG TAB PO PRN (05:50)
[2021-02-22] MEDS: LACTATED RINGERS 1,000 ML IV SCH ×2 (06:35→19:08)
--- NOTE | 2021-02-22 08:09 | Progress Note ---
Assessment and Plan A: 41 y.o. @ 37.1 wks. Last cervical exam /-3 @ 1800. Unable to tolerate vaginal exam. P: Early epidural placement. Start Pitocin per protocol. Will attempted to place Cook's Catheter after epidural placement. Subjective - Subjective Date of service: 02/22/21 Principal diagnosis: IUP @37.1 wks, IOL for CHTN with superimposed Pre-eclampsia Patient reports: movement normal, contractions, no new complaints, no loss of fluid, no vaginal bleeding Objective - Vital Signs Vital Signs: Vital Signs - 12hr 02/21/21 02/21/21 02/21/21 20:12 20:17 20:19 Temperature Pulse Rate 75 78 71 Respiratory Rate Blood Pressure 134/71 Blood Pressure [Left] O2 Sat by Pulse 99 100 Oximetry O2 Sat by Pulse Oximetry [ Bilateral] 02/21/21 02/21/21 02/21/21 20:22 20:27 20:32 Temperature Pulse Rate 73 78 77 Respiratory Rate Blood Pressure Blood Pressure [Left] O2 Sat by Pulse 100 99 99 Oximetry O2 Sat by Pulse Oximetry [ Bilateral] 02/21/21 02/21/21 02/21/21 20:34 20:37 20:42 Temperature Pulse Rate 75 84 81 Respiratory Rate Blood Pressure 150/85 Blood Pressure [Left] O2 Sat by Pulse 100 100 Oximetry O2 Sat by Pulse Oximetry [ Bilateral] 02/21/21 02/21/21 02/21/21 20:47 20:49 20:52 Temperature Pulse Rate 83 78 75 Respiratory Rate Blood Pressure 127/75 Blood Pressure [Left] O2 Sat by Pulse 100 100 Oximetry O2 Sat by Pulse Oximetry [ Bilateral] 02/21/21 02/21/21 02/21/21 20:57 21:02 21:03 Temperature Pulse Rate 77 75 77 Respiratory Rate Blood Pressure 129/82 Blood Pressure [Left] O2 Sat by Pulse 100 100 Oximetry O2 Sat by Pulse Oximetry [ Bilateral] 02/21/21 02/21/21 02/21/21 21:07 21:12 21:17 Temperature Pulse Rate 103 H 76 78 Respiratory Rate Blood Pressure Blood Pressure [Left] O2 Sat by Pulse 100 100 100 Oximetry O2 Sat by Pulse Oximetry [ Bilateral] 02/21/21 02/21/21 02/21/21 21:20 21:22 21:27 Temperature Pulse Rate 78 79 78 Respiratory Rate Blood Pressure 132/95 Blood Pressure [Left] O2 Sat by Pulse 100 100 Oximetry O2 Sat by Pulse Oximetry [ Bilateral] 02/21/21 02/21/21 02/21/21 21:32 21:33 21:37 Temperature Pulse Rate 78 75 75 Respiratory Rate Blood Pressure 135/74 Blood Pressure [Left] O2 Sat by Pulse 100 100 Oximetry O2 Sat by Pulse Oximetry [ Bilateral] 02/21/21 02/21/21 02/21/21 21:42 21:47 21:52 Temperature Pulse Rate 75 75 79 Respiratory Rate Blood Pressure 141/79 Blood Pressure [Left] O2 Sat by Pulse 100 100 100 Oximetry O2 Sat by Pulse Oximetry [ Bilateral] 02/21/21 02/21/21 02/21/21 21:57 22:02 22:07 Temperature Pulse Rate 78 71 71 Respiratory Rate Blood Pressure 135/73 Blood Pressure [Left] O2 Sat by Pulse 98 100 100 Oximetry O2 Sat by Pulse Oximetry [ Bilateral] 02/21/21 02/21/21 02/21/21 22:12 22:17 22:22 Temperature Pulse Rate 77 96 H 78 Respiratory Rate Blood Pressure Blood Pressure [Left] O2 Sat by Pulse 100 100 100 Oximetry O2 Sat by Pulse Oximetry [ Bilateral] 02/21/21 02/21/21 02/21/21 22:27 22:32 22:37 Temperature Pulse Rate 72 72 75 Respiratory Rate Blood Pressure 134/73 Blood Pressure [Left] O2 Sat by Pulse 100 100 99 Oximetry O2 Sat by Pulse Oximetry [ Bilateral] 02/21/21 02/21/21 02/21/21 22:42 22:47 22:52 Temperature Pulse Rate 73 76 75 Respiratory Rate Blood Pressure 137/66 Blood Pressure [Left] O2 Sat by Pulse 100 99 99 Oximetry O2 Sat by Pulse Oximetry [ Bilateral] 02/21/21 02/21/21 02/21/21 22:57 23:02 23:07 Temperature Pulse Rate 77 76 77 Respiratory Rate Blood Pressure 139/67 Blood Pressure [Left] O2 Sat by Pulse 99 99 98 Oximetry O2 Sat by Pulse Oximetry [ Bilateral] 02/21/21 02/21/21 02/21/21 23:12 23:17 23:22 Temperature Pulse Rate 78 90 83 Respiratory Rate Blood Pressure 128/66 Blood Pressure [Left] O2 Sat by Pulse 99 97 100 Oximetry O2 Sat by Pulse Oximetry [ Bilateral] 02/21/21 02/21/21 02/21/21 23:27 23:32 23:37 Temperature Pulse Rate 77 85 77 Respiratory Rate Blood Pressure 121/60 Blood Pressure [Left] O2 Sat by Pulse 100 99 99 Oximetry O2 Sat by Pulse Oximetry [ Bilateral] 02/21/21 02/21/21 02/21/21 23:42 23:47 23:48 Temperature Pulse Rate 82 81 81 Respiratory Rate Blood Pressure 125/65 Blood Pressure [Left] O2 Sat by Pulse 99 100 Oximetry O2 Sat by Pulse Oximetry [ Bilateral] 02/21/21 02/21/21 02/22/21 23:52 23:57 00:00 Temperature 98.0 F Pulse Rate 82 78 Respiratory Rate Blood Pressure Blood Pressure [Left] O2 Sat by Pulse 99 98 Oximetry O2 Sat by Pulse Oximetry [ Bilateral] 02/22/21 02/22/21 02/22/21 00:02 00:03 00:07 Temperature Pulse Rate 78 80 84 Respiratory Rate Blood Pressure 116/57 Blood Pressure [Left] O2 Sat by Pulse 98 98 Oximetry O2 Sat by Pulse Oximetry [ Bilateral] 02/22/21 02/22/21 02/22/21 00:12 00:17 00:18 Temperature Pulse Rate 89 96 H 93 H Respiratory Rate Blood Pressure 137/70 Blood Pressure [Left] O2 Sat by Pulse 96 96 Oximetry O2 Sat by Pulse Oximetry [ Bilateral] 02/22/21 02/22/21 02/22/21 00:22 00:27 00:56 Temperature Pulse Rate 81 85 75 Respiratory Rate Blood Pressure Blood Pressure [Left] O2 Sat by Pulse 99 99 99 Oximetry O2 Sat by Pulse Oximetry [ Bilateral] 02/22/21 02/22/21 02/22/21 01:00 01:01 01:06 Temperature 98.5 F Pulse Rate 75 76 Respiratory Rate Blood Pressure Blood Pressure [Left] O2 Sat by Pulse 99 99 Oximetry O2 Sat by Pulse Oximetry [ Bilateral] 02/22/21 02/22/21 02/22/21 01:08 01:11 01:16 Temperature Pulse Rate 80 82 76 Respiratory Rate Blood Pressure 134/74 Blood Pressure [Left] O2 Sat by Pulse 100 99 Oximetry O2 Sat by Pulse Oximetry [ Bilateral] 02/22/21 02/22/21 02/22/21 01:17 01:21 01:26 Temperature Pulse Rate 79 79 76 Respiratory Rate Blood Pressure 134/79 Blood Pressure [Left] O2 Sat by Pulse 99 100 Oximetry O2 Sat by Pulse Oximetry [ Bilateral] 02/22/21 02/22/21 02/22/21 01:31 01:32 01:36 Temperature Pulse Rate 78 76 79 Respiratory Rate Blood Pressure 133/75 Blood Pressure [Left] O2 Sat by Pulse 99 99 Oximetry O2 Sat by Pulse Oximetry [ Bilateral] 02/22/21 02/22/21 02/22/21 01:41 01:46 01:48 Temperature Pulse Rate 76 82 73 Respiratory Rate Blood Pressure 134/73 Blood Pressure [Left] O2 Sat by Pulse 99 99 Oximetry O2 Sat by Pulse Oximetry [ Bilateral] 02/22/21 02/22/21 02/22/21 01:51 01:56 02:01 Temperature Pulse Rate 73 72 72 Respiratory Rate Blood Pressure Blood Pressure [Left] O2 Sat by Pulse 99 99 99 Oximetry O2 Sat by Pulse Oximetry [ Bilateral] 02/22/21 02/22/21 02/22/21 02:04 02:06 02:11 Temperature Pulse Rate 80 77 80 Respiratory Rate Blood Pressure 148/127 Blood Pressure [Left] O2 Sat by Pulse 100 99 Oximetry O2 Sat by Pulse Oximetry [ Bilateral] 02/22/21 02/22/21 02/22/21 02:16 02:21 02:26 Temperature Pulse Rate 84 79 84 Respiratory Rate Blood Pressure 143/68 Blood Pressure [Left] O2 Sat by Pulse 100 100 99 Oximetry O2 Sat by Pulse Oximetry [ Bilateral] 02/22/21 02/22/21 02/22/21 02:31 02:36 02:41 Temperature Pulse Rate 74 81 Respiratory Rate Blood Pressure Blood Pressure [Left] O2 Sat by Pulse 95 100 100 Oximetry O2 Sat by Pulse Oximetry [ Bilateral] 02/22/21 02/22/21 02/22/21 02:46 02:51 02:56 Temperature Pulse Rate 75 79 71 Respiratory Rate Blood Pressure 134/72 Blood Pressure [Left] O2 Sat by Pulse 99 99 100 Oximetry O2 Sat by Pulse Oximetry [ Bilateral] 02/22/21 02/22/21 02/22/21 03:01 03:06 03:11 Temperature Pulse Rate 79 81 74 Respiratory Rate Blood Pressure Blood Pressure [Left] O2 Sat by Pulse 100 99 100 Oximetry O2 Sat by Pulse Oximetry [ Bilateral] 02/22/21 02/22/21 02/22/21 03:16 03:17 03:21 Temperature Pulse Rate 74 76 79 Respiratory Rate Blood Pressure 141/74 Blood Pressure [Left] O2 Sat by Pulse 100 100 Oximetry O2 Sat by Pulse Oximetry [ Bilateral] 02/22/21 02/22/21 02/22/21 03:26 03:31 03:36 Temperature Pulse Rate 77 79 79 Respiratory Rate Blood Pressure Blood Pressure [Left] O2 Sat by Pulse 100 100 100 Oximetry O2 Sat by Pulse Oximetry [ Bilateral] 02/22/21 02/22/21 02/22/21 03:41 03:46 03:51 Temperature Pulse Rate 76 77 81 Respiratory Rate Blood Pressure 124/63 Blood Pressure [Left] O2 Sat by Pulse 100 100 99 Oximetry O2 Sat by Pulse Oximetry [ Bilateral] 02/22/21 02/22/21 02/22/21 03:56 04:01 04:06 Temperature Pulse Rate 89 82 78 Respiratory Rate Blood Pressure Blood Pressure [Left] O2 Sat by Pulse 100 100 100 Oximetry O2 Sat by Pulse Oximetry [ Bilateral] 02/22/21 02/22/21 02/22/21 04:11 04:16 04:17 Temperature Pulse Rate 75 79 80 Respiratory Rate Blood Pressure 139/76 Blood Pressure [Left] O2 Sat by Pulse 99 99 Oximetry O2 Sat by Pulse Oximetry [ Bilateral] 02/22/21 02/22/21 02/22/21 04:21 04:26 04:31 Temperature Pulse Rate 85 96 H 83 Respiratory Rate Blood Pressure Blood Pressure [Left] O2 Sat by Pulse 99 100 97 Oximetry O2 Sat by Pulse Oximetry [ Bilateral] 02/22/21 02/22/21 02/22/21 04:36 04:39 04:41 Temperature Pulse Rate 80 94 H 85 Respiratory Rate Blood Pressure Blood Pressure [Left] O2 Sat by Pulse 97 93 97 Oximetry O2 Sat by Pulse Oximetry [ Bilateral] 02/22/21 02/22/21 02/22/21 04:46 04:51 04:55 Temperature Pulse Rate 84 85 97 H Respiratory Rate Blood Pressure 134/69 Blood Pressure [Left] O2 Sat by Pulse 96 99 94 Oximetry O2 Sat by Pulse Oximetry [ Bilateral] 02/22/21 02/22/21 02/22/21 04:56 05:01 05:06 Temperature Pulse Rate 98 H 87 90 Respiratory Rate Blood Pressure Blood Pressure [Left] O2 Sat by Pulse 95 97 96 Oximetry O2 Sat by Pulse Oximetry [ Bilateral] 02/22/21 02/22/21 02/22/21 05:11 05:16 05:21 Temperature Pulse Rate 87 87 93 H Respiratory Rate Blood Pressure 140/74 Blood Pressure [Left] O2 Sat by Pulse 98 96 100 Oximetry O2 Sat by Pulse Oximetry [ Bilateral] 02/22/21 02/22/21 02/22/21 05:26 05:31 05:36 Temperature Pulse Rate 81 86 82 Respiratory Rate Blood Pressure Blood Pressure [Left] O2 Sat by Pulse 98 97 97 Oximetry O2 Sat by Pulse Oximetry [ Bilateral] 02/22/21 02/22/21 02/22/21 05:41 05:46 05:47 Temperature Pulse Rate 87 82 81 Respiratory Rate Blood Pressure 130/68 Blood Pressure [Left] O2 Sat by Pulse 95 97 Oximetry O2 Sat by Pulse Oximetry [ Bilateral] 02/22/21 02/22/21 02/22/21 05:51 05:56 06:01 Temperature Pulse Rate 88 84 86 Respiratory Rate Blood Pressure Blood Pressure [Left] O2 Sat by Pulse 97 98 97 Oximetry O2 Sat by Pulse Oximetry [ Bilateral] 02/22/21 02/22/21 02/22/21 06:06 06:11 06:16 Temperature Pulse Rate 87 87 89 Respiratory Rate Blood Pressure Blood Pressure [Left] O2 Sat by Pulse 96 97 99 Oximetry O2 Sat by Pulse Oximetry [ Bilateral] 02/22/21 02/22/21 02/22/21 06:17 06:21 06:26 Temperature Pulse Rate 92 H 84 94 H Respiratory Rate Blood Pressure 128/58 Blood Pressure [Left] O2 Sat by Pulse 98 97 Oximetry O2 Sat by Pulse Oximetry [ Bilateral] 02/22/21 02/22/21 02/22/21 06:31 06:36 06:41 Temperature 98.3 F Pulse Rate 87 87 99 H Respiratory Rate Blood Pressure Blood Pressure [Left] O2 Sat by Pulse 98 98 99 Oximetry O2 Sat by Pulse Oximetry [ Bilateral] 02/22/21 02/22/21 02/22/21 06:46 06:47 06:51 Temperature Pulse Rate 83 84 85 Respiratory Rate Blood Pressure 110/59 Blood Pressure [Left] O2 Sat by Pulse 99 99 Oximetry O2 Sat by Pulse Oximetry [ Bilateral] 02/22/21 02/22/21 02/22/21 06:56 07:01 07:06 Temperature Pulse Rate 88 86 97 H Respiratory Rate Blood Pressure Blood Pressure [Left] O2 Sat by Pulse 98 99 100 Oximetry O2 Sat by Pulse Oximetry [ Bilateral] 02/22/21 02/22/21 02/22/21 07:12 07:15 07:17 Temperature 97.5 F L Pulse Rate 83 81 81 Respiratory 16 Rate Blood Pressure 131/77 Blood Pressure 137/77 [Left] O2 Sat by Pulse 100 100 Oximetry O2 Sat by Pulse Oximetry [ Bilateral] 02/22/21 02/22/21 02/22/21 07:18 07:22 07:27 Temperature Pulse Rate 78 77 Respiratory Rate Blood Pressure Blood Pressure [Left] O2 Sat by Pulse 100 99 Oximetry O2 Sat by Pulse 99 Oximetry [ Bilateral] 02/22/21 02/22/21 02/22/21 07:32 07:37 07:42 Temperature Pulse Rate 80 81 82 Respiratory Rate Blood Pressure Blood Pressure [Left] O2 Sat by Pulse 100 100 100 Oximetry O2 Sat by Pulse Oximetry [ Bilateral] 02/22/21 02/22/21 02/22/21 07:45 07:47 07:52 Temperature Pulse Rate 82 81 83 Respiratory Rate Blood Pressure 124/73 Blood Pressure [Left] O2 Sat by Pulse 100 99 Oximetry O2 Sat by Pulse Oximetry [ Bilateral] 02/22/21 02/22/21 07:57 08:02 Temperature Pulse Rate 93 H 91 H Respiratory Rate Blood Pressure Blood Pressure [Left] O2 Sat by Pulse 100 100 Oximetry O2 Sat by Pulse Oximetry [ Bilateral] - Exam Narrative Exam: Attempted to exam patient's cervix and she could not tolerate an exam. Her last exam at @ 1800 was /3. Discussed with patient getting an early epidural for pain medication, and then starting Pitocin. Also will attempt to place Cook's Catheter. She agrees to the POC at this time. Pt states that she is [place] a lot and in a lot of pain. Had IV pain medication that does not seem to be helping with the pain. States that she is having a lot of vaginal pain. From what I am able to feel, there seems to be presenting part in the vagina at this time. Breasts: deferred Cardiovascular: Regular rate Lungs: Normal air movement Abdomen: Present: normal appearance, soft Vulva: both: normal Uterus: Present: normal FHR: category 1 Uterine Contraction Monitor Mode: External Uterine Contraction Pattern: Regular Uterine Tone Measurement Phase: Resting Uterine Contraction Intensity: Moderate Extremities: normal - Labs Labs: Abnormal Labs 02/21/21 02/21/21 10:36 10:36 RBC 3.40 L Hgb 9.5 L Hct 29.0 L RDW 16.9 H Creatinine 0.3 L Lactate Dehydrogenase 342 H Laboratory Results - last 24 hr 02/21/21 02/21/21 02/21/21 10:36 10:36 10:36 WBC 5.0 RBC 3.40 L Hgb 9.5 L Hct 29.0 L MCV 85 MCH 28 MCHC 33 RDW 16.9 H Plt Count 192 Creatinine Estimated GFR Uric Acid AST ALT Lactate Dehydrogenase Syphilis IgG Antibody Nonreactive Blood Type O POSITIVE Antibody Screen Negative 02/21/21 10:36 WBC RBC Hgb Hct MCV MCH MCHC RDW Plt Count Creatinine 0.3 L Estimated GFR > 60 Uric Acid 3.8 AST 20 ALT 7 Lactate Dehydrogenase 342 H Syphilis IgG Antibody Blood Type Antibody Screen
[2021-02-22] MEDS ORDERED: ePHEDrine SULFATE 50 MG/1 ML INJ IV PRN ×2 (09:00→09:19)
[2021-02-22] MEDS ORDERED: NALOXONE 2 MG/2 ML INJ IV PRN ×2 (09:00→09:19)
[2021-02-22] MEDS ORDERED: fentaNYL-BUPIV 2 MCG/ML-0.125% 200 MCG/100 ML BAG EPIDURAL SCH (09:00)
--- NOTE | 2021-02-22 09:20 | Anesthesia Consultation ---
Anesthesia Consult and Med Hx Date of service: 02/22/21 - Airway Anesthetic Teeth Evaluation: Good ROM Head & Neck: Adequate Mental/Hyoid Distance: Adequate Mallampati Class: Class II Intubation Access Assessment: Probably Good - Pre-Operative Health Status ASA Pre-Surgery Classification: ASA2 Proposed Anesthetic Plan: Epidural, Spinal - Pulmonary Hx Asthma: Yes (2wks ago used inhaler) COPD: No Hx Pneumonia: Yes - Cardiovascular System Hx Hypertension: Yes - Central Nervous System Hx Seizures: No Hx Psychiatric Problems: No - Endocrine Hx Renal Disease: No Hx End Stage Renal Disease: No Hx Hypothyroidism: No Hx Hyperthyroidism: No - Hematic Hx Anemia: Yes (ellipto) Hx Sickle Cell Disease: No - Other Systems Hx Alcohol Use: No
--- NOTE | 2021-02-22 09:30 | Progress Note ---
Labor Epidural - Labor Epidural Start Time: 08:54 Stop Time: 09:04 Performed by:: KARISSA RHODES Procedure: Spinal/epidural for labor Patient is requesting epidural for labor and pain. H&P, labs were reviewed. Patient IDed, H&P reviewed, all questions and concerns were answered, and consent was signed. Timeout was performed at bedside. Patient in sitting position. Sterile prep and drape was performed. 3ml of 1% lidocaine skin wheal at L[3]- L [4]. 18-gauge Tuohy epidural needle was advanced to loss of resistance with water technique to 7cm. Negative CSF negative blood. Spinal needle advanced through epidural. Clear spinal fluid. Injected 10mcg of Precedex in 0.5 ml of water. Epidural catheter advanced to [12] centimeters. Negative Aspiration and negative test dose. Sterile dressing applied. Patient tolerated procedure. Procedure [id number]
[2021-02-22] MEDS: fentaNYL-BUPIV 2 MCG/ML-0.125% 200 MCG/100 ML BAG EPIDURAL SCH ×2 (10:06→19:09)
[2021-02-22] MEDS ORDERED: FLU VACC QUAD 2021-22(6MOS UP)/PF 60 MCG/0.5 ML SYRINGE IM ONE (12:00)
[2021-02-22] MEDS ORDERED: PNEUMOCOCCAL 23 Valent 0.5 ML VIAL IM ONE (12:00)
[2021-02-22] MEDS: OXYTOCIN DRIP 30 UNITS/500 ML BAG IV SCH (12:00)
--- NOTE | 2021-02-22 12:06 | Progress Note ---
Assessment and Plan A: 41 y.o. IOL d/t cHTN with superimposed Pre E. Cervical exam 1.5/50/-3. Cook's Catheter placed. P: Initiate Pitocin per protocol. Will continue to monitor for s/sx of worsening pre eclampsia. Subjective - Subjective Date of service: 02/22/21 Principal diagnosis: IUP @37.1 wks, IOL for CHTN with superimposed Pre-eclampsia Patient reports: movement normal, contractions, no new complaints, no loss of fluid, no vaginal bleeding Objective - Vital Signs Vital Signs: Vital Signs - 12hr 02/22/21 02/22/21 02/22/21 00:07 00:12 00:17 Temperature Pulse Rate 84 89 96 H Respiratory Rate Blood Pressure Blood Pressure [Left] O2 Sat by Pulse 98 96 96 Oximetry O2 Sat by Pulse Oximetry [ Bilateral] 02/22/21 02/22/21 02/22/21 00:18 00:22 00:27 Temperature Pulse Rate 93 H 81 85 Respiratory Rate Blood Pressure 137/70 Blood Pressure [Left] O2 Sat by Pulse 99 99 Oximetry O2 Sat by Pulse Oximetry [ Bilateral] 02/22/21 02/22/21 02/22/21 00:56 01:00 01:01 Temperature 98.5 F Pulse Rate 75 75 Respiratory Rate Blood Pressure Blood Pressure [Left] O2 Sat by Pulse 99 99 Oximetry O2 Sat by Pulse Oximetry [ Bilateral] 02/22/21 02/22/21 02/22/21 01:06 01:08 01:11 Temperature Pulse Rate 76 80 82 Respiratory Rate Blood Pressure 134/74 Blood Pressure [Left] O2 Sat by Pulse 99 100 Oximetry O2 Sat by Pulse Oximetry [ Bilateral] 02/22/21 02/22/21 02/22/21 01:16 01:17 01:21 Temperature Pulse Rate 76 79 79 Respiratory Rate Blood Pressure 134/79 Blood Pressure [Left] O2 Sat by Pulse 99 99 Oximetry O2 Sat by Pulse Oximetry [ Bilateral] 02/22/21 02/22/21 02/22/21 01:26 01:31 01:32 Temperature Pulse Rate 76 78 76 Respiratory Rate Blood Pressure 133/75 Blood Pressure [Left] O2 Sat by Pulse 100 99 Oximetry O2 Sat by Pulse Oximetry [ Bilateral] 02/22/21 02/22/21 02/22/21 01:36 01:41 01:46 Temperature Pulse Rate 79 76 82 Respiratory Rate Blood Pressure Blood Pressure [Left] O2 Sat by Pulse 99 99 99 Oximetry O2 Sat by Pulse Oximetry [ Bilateral] 02/22/21 02/22/21 02/22/21 01:48 01:51 01:56 Temperature Pulse Rate 73 73 72 Respiratory Rate Blood Pressure 134/73 Blood Pressure [Left] O2 Sat by Pulse 99 99 Oximetry O2 Sat by Pulse Oximetry [ Bilateral] 02/22/21 02/22/21 02/22/21 02:01 02:04 02:06 Temperature Pulse Rate 72 80 77 Respiratory Rate Blood Pressure 148/127 Blood Pressure [Left] O2 Sat by Pulse 99 100 Oximetry O2 Sat by Pulse Oximetry [ Bilateral] 02/22/21 02/22/21 02/22/21 02:11 02:16 02:21 Temperature Pulse Rate 80 84 79 Respiratory Rate Blood Pressure 143/68 Blood Pressure [Left] O2 Sat by Pulse 99 100 100 Oximetry O2 Sat by Pulse Oximetry [ Bilateral] 02/22/21 02/22/21 02/22/21 02:26 02:31 02:36 Temperature Pulse Rate 84 74 Respiratory Rate Blood Pressure Blood Pressure [Left] O2 Sat by Pulse 99 95 100 Oximetry O2 Sat by Pulse Oximetry [ Bilateral] 02/22/21 02/22/21 02/22/21 02:41 02:46 02:51 Temperature Pulse Rate 81 75 79 Respiratory Rate Blood Pressure 134/72 Blood Pressure [Left] O2 Sat by Pulse 100 99 99 Oximetry O2 Sat by Pulse Oximetry [ Bilateral] 02/22/21 02/22/21 02/22/21 02:56 03:01 03:06 Temperature Pulse Rate 71 79 81 Respiratory Rate Blood Pressure Blood Pressure [Left] O2 Sat by Pulse 100 100 99 Oximetry O2 Sat by Pulse Oximetry [ Bilateral] 02/22/21 02/22/21 02/22/21 03:11 03:16 03:17 Temperature Pulse Rate 74 74 76 Respiratory Rate Blood Pressure 141/74 Blood Pressure [Left] O2 Sat by Pulse 100 100 Oximetry O2 Sat by Pulse Oximetry [ Bilateral] 02/22/21 02/22/21 02/22/21 03:21 03:26 03:31 Temperature Pulse Rate 79 77 79 Respiratory Rate Blood Pressure Blood Pressure [Left] O2 Sat by Pulse 100 100 100 Oximetry O2 Sat by Pulse Oximetry [ Bilateral] 02/22/21 02/22/21 02/22/21 03:36 03:41 03:46 Temperature Pulse Rate 79 76 77 Respiratory Rate Blood Pressure 124/63 Blood Pressure [Left] O2 Sat by Pulse 100 100 100 Oximetry O2 Sat by Pulse Oximetry [ Bilateral] 02/22/21 02/22/21 02/22/21 03:51 03:56 04:01 Temperature Pulse Rate 81 89 82 Respiratory Rate Blood Pressure Blood Pressure [Left] O2 Sat by Pulse 99 100 100 Oximetry O2 Sat by Pulse Oximetry [ Bilateral] 02/22/21 02/22/21 02/22/21 04:06 04:11 04:16 Temperature Pulse Rate 78 75 79 Respiratory Rate Blood Pressure Blood Pressure [Left] O2 Sat by Pulse 100 99 99 Oximetry O2 Sat by Pulse Oximetry [ Bilateral] 02/22/21 02/22/21 02/22/21 04:17 04:21 04:26 Temperature Pulse Rate 80 85 96 H Respiratory Rate Blood Pressure 139/76 Blood Pressure [Left] O2 Sat by Pulse 99 100 Oximetry O2 Sat by Pulse Oximetry [ Bilateral] 02/22/21 02/22/21 02/22/21 04:31 04:36 04:39 Temperature Pulse Rate 83 80 94 H Respiratory Rate Blood Pressure Blood Pressure [Left] O2 Sat by Pulse 97 97 93 Oximetry O2 Sat by Pulse Oximetry [ Bilateral] 02/22/21 02/22/21 02/22/21 04:41 04:46 04:51 Temperature Pulse Rate 85 84 85 Respiratory Rate Blood Pressure 134/69 Blood Pressure [Left] O2 Sat by Pulse 97 96 99 Oximetry O2 Sat by Pulse Oximetry [ Bilateral] 02/22/21 02/22/21 02/22/21 04:55 04:56 05:01 Temperature Pulse Rate 97 H 98 H 87 Respiratory Rate Blood Pressure Blood Pressure [Left] O2 Sat by Pulse 94 95 97 Oximetry O2 Sat by Pulse Oximetry [ Bilateral] 02/22/21 02/22/21 02/22/21 05:06 05:11 05:16 Temperature Pulse Rate 90 87 87 Respiratory Rate Blood Pressure 140/74 Blood Pressure [Left] O2 Sat by Pulse 96 98 96 Oximetry O2 Sat by Pulse Oximetry [ Bilateral] 02/22/21 02/22/21 02/22/21 05:21 05:26 05:31 Temperature Pulse Rate 93 H 81 86 Respiratory Rate Blood Pressure Blood Pressure [Left] O2 Sat by Pulse 100 98 97 Oximetry O2 Sat by Pulse Oximetry [ Bilateral] 02/22/21 02/22/21 02/22/21 05:36 05:41 05:46 Temperature Pulse Rate 82 87 82 Respiratory Rate Blood Pressure Blood Pressure [Left] O2 Sat by Pulse 97 95 97 Oximetry O2 Sat by Pulse Oximetry [ Bilateral] 02/22/21 02/22/21 02/22/21 05:47 05:51 05:56 Temperature Pulse Rate 81 88 84 Respiratory Rate Blood Pressure 130/68 Blood Pressure [Left] O2 Sat by Pulse 97 98 Oximetry O2 Sat by Pulse Oximetry [ Bilateral] 02/22/21 02/22/21 02/22/21 06:01 06:06 06:11 Temperature Pulse Rate 86 87 87 Respiratory Rate Blood Pressure Blood Pressure [Left] O2 Sat by Pulse 97 96 97 Oximetry O2 Sat by Pulse Oximetry [ Bilateral] 02/22/21 02/22/21 02/22/21 06:16 06:17 06:21 Temperature Pulse Rate 89 92 H 84 Respiratory Rate Blood Pressure 128/58 Blood Pressure [Left] O2 Sat by Pulse 99 98 Oximetry O2 Sat by Pulse Oximetry [ Bilateral] 02/22/21 02/22/21 02/22/21 06:26 06:31 06:36 Temperature Pulse Rate 94 H 87 87 Respiratory Rate Blood Pressure Blood Pressure [Left] O2 Sat by Pulse 97 98 98 Oximetry O2 Sat by Pulse Oximetry [ Bilateral] 02/22/21 02/22/21 02/22/21 06:41 06:46 06:47 Temperature 98.3 F Pulse Rate 99 H 83 84 Respiratory Rate Blood Pressure 110/59 Blood Pressure [Left] O2 Sat by Pulse 99 99 Oximetry O2 Sat by Pulse Oximetry [ Bilateral] 02/22/21 02/22/21 02/22/21 06:51 06:56 07:01 Temperature Pulse Rate 85 88 86 Respiratory Rate Blood Pressure Blood Pressure [Left] O2 Sat by Pulse 99 98 99 Oximetry O2 Sat by Pulse Oximetry [ Bilateral] 02/22/21 02/22/21 02/22/21 07:06 07:12 07:15 Temperature 97.5 F L Pulse Rate 97 H 83 81 Respiratory 16 Rate Blood Pressure 131/77 Blood Pressure 137/77 [Left] O2 Sat by Pulse 100 100 Oximetry O2 Sat by Pulse Oximetry [ Bilateral] 02/22/21 02/22/21 02/22/21 07:17 07:18 07:22 Temperature Pulse Rate 81 78 Respiratory Rate Blood Pressure Blood Pressure [Left] O2 Sat by Pulse 100 100 Oximetry O2 Sat by Pulse 99 Oximetry [ Bilateral] 02/22/21 02/22/21 02/22/21 07:27 07:32 07:37 Temperature Pulse Rate 77 80 81 Respiratory Rate Blood Pressure Blood Pressure [Left] O2 Sat by Pulse 99 100 100 Oximetry O2 Sat by Pulse Oximetry [ Bilateral] 02/22/21 02/22/21 02/22/21 07:42 07:45 07:47 Temperature Pulse Rate 82 82 81 Respiratory Rate Blood Pressure 124/73 Blood Pressure [Left] O2 Sat by Pulse 100 100 Oximetry O2 Sat by Pulse Oximetry [ Bilateral] 02/22/21 02/22/21 02/22/21 07:52 07:57 08:02 Temperature Pulse Rate 83 93 H 91 H Respiratory Rate Blood Pressure Blood Pressure [Left] O2 Sat by Pulse 99 100 100 Oximetry O2 Sat by Pulse Oximetry [ Bilateral] 02/22/21 02/22/21 02/22/21 08:07 08:12 08:15 Temperature Pulse Rate 85 84 81 Respiratory Rate Blood Pressure 123/62 Blood Pressure [Left] O2 Sat by Pulse 100 100 Oximetry O2 Sat by Pulse Oximetry [ Bilateral] 02/22/21 02/22/21 02/22/21 08:17 08:22 08:27 Temperature Pulse Rate 84 82 82 Respiratory Rate Blood Pressure Blood Pressure [Left] O2 Sat by Pulse 100 99 100 Oximetry O2 Sat by Pulse Oximetry [ Bilateral] 02/22/21 02/22/21 02/22/21 08:32 08:37 08:43 Temperature Pulse Rate 82 88 89 Respiratory Rate Blood Pressure Blood Pressure [Left] O2 Sat by Pulse 100 100 95 Oximetry O2 Sat by Pulse Oximetry [ Bilateral] 02/22/21 02/22/21 02/22/21 08:48 08:53 08:58 Temperature Pulse Rate 87 86 78 Respiratory Rate Blood Pressure Blood Pressure [Left] O2 Sat by Pulse 100 100 100 Oximetry O2 Sat by Pulse Oximetry [ Bilateral] 02/22/21 02/22/21 02/22/21 09:03 09:06 09:08 Temperature Pulse Rate 76 82 73 Respiratory Rate Blood Pressure 133/73 Blood Pressure [Left] O2 Sat by Pulse 100 100 Oximetry O2 Sat by Pulse Oximetry [ Bilateral] 02/22/21 02/22/21 02/22/21 09:09 09:13 09:14 Temperature Pulse Rate 77 74 80 Respiratory Rate Blood Pressure 149/80 124/58 122/58 Blood Pressure [Left] O2 Sat by Pulse 100 Oximetry O2 Sat by Pulse Oximetry [ Bilateral] 02/22/21 02/22/21 02/22/21 09:17 09:18 09:19 Temperature Pulse Rate 80 78 77 Respiratory Rate Blood Pressure 113/54 115/58 Blood Pressure [Left] O2 Sat by Pulse 100 Oximetry O2 Sat by Pulse Oximetry [ Bilateral] 02/22/21 02/22/21 02/22/21 09:22 09:23 09:25 Temperature Pulse Rate 106 H 86 81 Respiratory Rate Blood Pressure 166/95 135/63 Blood Pressure [Left] O2 Sat by Pulse 99 Oximetry O2 Sat by Pulse Oximetry [ Bilateral] 02/22/21 02/22/21 02/22/21 09:26 09:28 09:30 Temperature Pulse Rate 86 83 75 Respiratory Rate Blood Pressure 128/65 121/62 109/59 Blood Pressure [Left] O2 Sat by Pulse 99 Oximetry O2 Sat by Pulse Oximetry [ Bilateral] 02/22/21 02/22/21 02/22/21 09:32 09:33 09:34 Temperature Pulse Rate 73 80 71 Respiratory Rate Blood Pressure 116/59 106/55 Blood Pressure [Left] O2 Sat by Pulse 99 Oximetry O2 Sat by Pulse Oximetry [ Bilateral] 02/22/21 02/22/21 02/22/21 09:36 09:38 09:40 Temperature Pulse Rate 75 74 76 Respiratory Rate Blood Pressure 106/59 106/58 111/56 Blood Pressure [Left] O2 Sat by Pulse 97 Oximetry O2 Sat by Pulse Oximetry [ Bilateral] 02/22/21 02/22/21 02/22/21 09:42 09:43 09:44 Temperature Pulse Rate 75 81 75 Respiratory Rate Blood Pressure 102/55 102/56 Blood Pressure [Left] O2 Sat by Pulse 99 Oximetry O2 Sat by Pulse Oximetry [ Bilateral] 02/22/21 02/22/21 02/22/21 09:46 09:48 09:50 Temperature Pulse Rate 78 75 74 Respiratory Rate Blood Pressure 105/55 101/53 103/54 Blood Pressure [Left] O2 Sat by Pulse 98 Oximetry O2 Sat by Pulse Oximetry [ Bilateral] 02/22/21 02/22/21 02/22/21 09:52 09:53 09:55 Temperature Pulse Rate 74 77 78 Respiratory Rate Blood Pressure 103/55 114/56 Blood Pressure [Left] O2 Sat by Pulse 99 Oximetry O2 Sat by Pulse Oximetry [ Bilateral] 02/22/21 02/22/21 02/22/21 09:56 09:58 10:03 Temperature Pulse Rate 76 75 76 Respiratory Rate Blood Pressure 113/56 Blood Pressure [Left] O2 Sat by Pulse 99 97 Oximetry O2 Sat by Pulse Oximetry [ Bilateral] 02/22/21 02/22/21 02/22/21 10:08 10:13 10:18 Temperature Pulse Rate 81 71 72 Respiratory Rate Blood Pressure Blood Pressure [Left] O2 Sat by Pulse 97 99 99 Oximetry O2 Sat by Pulse Oximetry [ Bilateral] 02/22/21 02/22/21 02/22/21 10:23 10:28 10:29 Temperature Pulse Rate 74 75 74 Respiratory Rate Blood Pressure 101/56 Blood Pressure [Left] O2 Sat by Pulse 98 98 Oximetry O2 Sat by Pulse Oximetry [ Bilateral] 02/22/21 02/22/21 02/22/21 10:33 10:38 10:43 Temperature Pulse Rate 76 73 73 Respiratory Rate Blood Pressure Blood Pressure [Left] O2 Sat by Pulse 98 98 98 Oximetry O2 Sat by Pulse Oximetry [ Bilateral] 02/22/21 02/22/21 02/22/21 10:48 10:53 10:57 Temperature Pulse Rate 73 72 72 Respiratory Rate Blood Pressure 110/59 Blood Pressure [Left] O2 Sat by Pulse 98 98 Oximetry O2 Sat by Pulse Oximetry [ Bilateral] 02/22/21 02/22/21 02/22/21 10:58 11:03 11:08 Temperature Pulse Rate 78 72 70 Respiratory Rate Blood Pressure Blood Pressure [Left] O2 Sat by Pulse 96 98 98 Oximetry O2 Sat by Pulse Oximetry [ Bilateral] 02/22/21 02/22/21 02/22/21 11:13 11:18 11:23 Temperature Pulse Rate 69 65 70 Respiratory Rate Blood Pressure Blood Pressure [Left] O2 Sat by Pulse 98 100 99 Oximetry O2 Sat by Pulse Oximetry [ Bilateral] 02/22/21 02/22/21 02/22/21 11:27 11:28 11:33 Temperature Pulse Rate 72 71 67 Respiratory Rate Blood Pressure 116/62 Blood Pressure [Left] O2 Sat by Pulse 94 98 99 Oximetry O2 Sat by Pulse Oximetry [ Bilateral] 02/22/21 02/22/21 02/22/21 11:38 11:43 11:48 Temperature Pulse Rate 65 71 77 Respiratory Rate Blood Pressure Blood Pressure [Left] O2 Sat by Pulse 99 100 99 Oximetry O2 Sat by Pulse Oximetry [ Bilateral] 02/22/21 02/22/21 02/22/21 11:53 11:57 11:58 Temperature Pulse Rate 75 72 70 Respiratory Rate Blood Pressure 116/56 Blood Pressure [Left] O2 Sat by Pulse 100 100 Oximetry O2 Sat by Pulse Oximetry [ Bilateral] 02/22/21 12:03 Temperature Pulse Rate 76 Respiratory Rate Blood Pressure Blood Pressure [Left] O2 Sat by Pulse 100 Oximetry O2 Sat by Pulse Oximetry [ Bilateral] - Exam Narrative Exam: Explained to the patient the plan of care for the afternoon: Pitocin with placement of Cooks Catheter. Pt agrees to plan. Cook's catheter placed and both balloons inflated to 60ml each (inserted by CAMILA Mcmahan). Pt tolerated procedure well. Pt states that she has a MOSER. Denies other s/sx of pre e. States she feels it is all the medication that she has been receiving. Will continue to monitor. Breasts: deferred Cardiovascular: Normal S1, Normal S2 Lungs: Clear to auscultation Abdomen: Present: normal appearance, soft Vulva: both: normal Uterus: Present: normal FHR: category 1 Uterine Contraction Monitor Mode: External Cervical Dilatation: 1.5 Cervical Effacement Percentage: 50 station: -3 Uterine Contraction Pattern: Regular Uterine Tone Measurement Phase: Resting Uterine Contraction Intensity: Moderate - Labs Labs: Abnormal Labs 02/21/21 02/21/21 10:36 10:36 RBC 3.40 L Hgb 9.5 L Hct 29.0 L RDW 16.9 H Creatinine 0.3 L Lactate Dehydrogenase 342 H
[2021-02-22] MEDS ORDERED: diphenhydrAMINE 50 MG/ML VIAL IV ONE (17:00)
--- NOTE | 2021-02-22 18:52 | Event Note ---
Date: 02/22/21 (Cook's Catheter still in place.) Cook's Catheter still in place. Pt comfortable with epidural. Will continue to monitor blood pressures.
--- NOTE | 2021-02-22 19:39 | Progress Note ---
Assessment and Plan Cooks cath out, SVE 5.5/80/-1 BBOW. Will continue to titrate pitocin. Plan on AROM and placement of IUPC for adequate ctx monitoring. Anticipate - Patient Problems (1) 37 weeks gestation of Current Visit: Yes Status: Acute (2) Chronic hypertension with superimposed preeclampsia Current Visit: Yes Status: Acute (3) Elderly multigravida Current Visit: Yes Status: Acute Qualifiers: Trimester: third trimester Qualified Code(s): O09.523 - Supervision of elderly multigravida, third trimester (4) History of herpes simplex infection Current Visit: Yes Status: Acute Plan to address problem: no s/s lesions Subjective - Subjective Date of service: 02/22/21 Principal diagnosis: IUP @37.1 wks, IOL for CHTN with superimposed Pre-eclampsia Patient reports: movement normal, no new complaints, no loss of fluid, no vaginal bleeding, no contractions Objective - Vital Signs Vital Signs: Vital Signs - 12hr 02/22/21 02/22/21 02/22/21 07:37 07:42 07:45 Pulse Rate 81 82 82 Blood Pressure 124/73 O2 Sat by Pulse 100 100 Oximetry 02/22/21 02/22/21 02/22/21 07:47 07:52 07:57 Pulse Rate 81 83 93 H Blood Pressure O2 Sat by Pulse 100 99 100 Oximetry 02/22/21 02/22/21 02/22/21 08:02 08:07 08:12 Pulse Rate 91 H 85 84 Blood Pressure O2 Sat by Pulse 100 100 100 Oximetry 02/22/21 02/22/21 02/22/21 08:15 08:17 08:22 Pulse Rate 81 84 82 Blood Pressure 123/62 O2 Sat by Pulse 100 99 Oximetry 02/22/21 02/22/21 02/22/21 08:27 08:32 08:37 Pulse Rate 82 82 88 Blood Pressure O2 Sat by Pulse 100 100 100 Oximetry 02/22/21 02/22/21 02/22/21 08:43 08:48 08:53 Pulse Rate 89 87 86 Blood Pressure O2 Sat by Pulse 95 100 100 Oximetry 02/22/21 02/22/21 02/22/21 08:58 09:03 09:06 Pulse Rate 78 76 82 Blood Pressure 133/73 O2 Sat by Pulse 100 100 Oximetry 02/22/21 02/22/21 02/22/21 09:08 09:09 09:13 Pulse Rate 73 77 74 Blood Pressure 149/80 124/58 O2 Sat by Pulse 100 100 Oximetry 02/22/21 02/22/21 02/22/21 09:14 09:17 09:18 Pulse Rate 80 80 78 Blood Pressure 122/58 113/54 O2 Sat by Pulse 100 Oximetry 02/22/21 02/22/21 02/22/21 09:19 09:22 09:23 Pulse Rate 77 106 H 86 Blood Pressure 115/58 166/95 O2 Sat by Pulse 99 Oximetry 02/22/21 02/22/21 02/22/21 09:25 09:26 09:28 Pulse Rate 81 86 83 Blood Pressure 135/63 128/65 121/62 O2 Sat by Pulse 99 Oximetry 02/22/21 02/22/21 02/22/21 09:30 09:32 09:33 Pulse Rate 75 73 80 Blood Pressure 109/59 116/59 O2 Sat by Pulse 99 Oximetry 02/22/21 02/22/21 02/22/21 09:34 09:36 09:38 Pulse Rate 71 75 74 Blood Pressure 106/55 106/59 106/58 O2 Sat by Pulse 97 Oximetry 02/22/21 02/22/21 02/22/21 09:40 09:42 09:43 Pulse Rate 76 75 81 Blood Pressure 111/56 102/55 O2 Sat by Pulse 99 Oximetry 02/22/21 02/22/21 02/22/21 09:44 09:46 09:48 Pulse Rate 75 78 75 Blood Pressure 102/56 105/55 101/53 O2 Sat by Pulse 98 Oximetry 02/22/21 02/22/21 02/22/21 09:50 09:52 09:53 Pulse Rate 74 74 77 Blood Pressure 103/54 103/55 O2 Sat by Pulse 99 Oximetry 02/22/21 02/22/21 02/22/21 09:55 09:56 09:58 Pulse Rate 78 76 75 Blood Pressure 114/56 113/56 O2 Sat by Pulse 99 Oximetry 02/22/21 02/22/21 02/22/21 10:03 10:08 10:13 Pulse Rate 76 81 71 Blood Pressure O2 Sat by Pulse 97 97 99 Oximetry 02/22/21 02/22/21 02/22/21 10:18 10:23 10:28 Pulse Rate 72 74 75 Blood Pressure O2 Sat by Pulse 99 98 98 Oximetry 02/22/21 02/22/21 02/22/21 10:29 10:33 10:38 Pulse Rate 74 76 73 Blood Pressure 101/56 O2 Sat by Pulse 98 98 Oximetry 02/22/21 02/22/21 02/22/21 10:43 10:48 10:53 Pulse Rate 73 73 72 Blood Pressure O2 Sat by Pulse 98 98 98 Oximetry 02/22/21 02/22/21 02/22/21 10:57 10:58 11:03 Pulse Rate 72 78 72 Blood Pressure 110/59 O2 Sat by Pulse 96 98 Oximetry 02/22/21 02/22/21 02/22/21 11:08 11:13 11:18 Pulse Rate 70 69 65 Blood Pressure O2 Sat by Pulse 98 98 100 Oximetry 02/22/21 02/22/21 02/22/21 11:23 11:27 11:28 Pulse Rate 70 72 71 Blood Pressure 116/62 O2 Sat by Pulse 99 94 98 Oximetry 02/22/21 02/22/21 02/22/21 11:33 11:38 11:43 Pulse Rate 67 65 71 Blood Pressure O2 Sat by Pulse 99 99 100 Oximetry 02/22/21 02/22/21 02/22/21 11:48 11:53 11:57 Pulse Rate 77 75 72 Blood Pressure 116/56 O2 Sat by Pulse 99 100 Oximetry 02/22/21 02/22/21 02/22/21 11:58 12:03 12:08 Pulse Rate 70 76 71 Blood Pressure O2 Sat by Pulse 100 100 100 Oximetry 02/22/21 02/22/21 02/22/21 12:13 12:18 12:23 Pulse Rate 71 71 76 Blood Pressure O2 Sat by Pulse 100 100 100 Oximetry 02/22/21 02/22/21 02/22/21 12:27 12:28 12:33 Pulse Rate 69 74 69 Blood Pressure 128/94 O2 Sat by Pulse 100 100 Oximetry 02/22/21 02/22/21 02/22/21 12:38 12:43 12:48 Pulse Rate 71 67 75 Blood Pressure O2 Sat by Pulse 100 99 100 Oximetry 02/22/21 02/22/21 02/22/21 12:53 12:58 13:03 Pulse Rate 82 78 70 Blood Pressure 128/68 O2 Sat by Pulse 99 100 100 Oximetry 02/22/21 02/22/21 02/22/21 13:08 13:13 13:18 Pulse Rate 71 72 72 Blood Pressure O2 Sat by Pulse 100 100 98 Oximetry 02/22/21 02/22/21 02/22/21 13:23 13:27 13:28 Pulse Rate 75 71 76 Blood Pressure 125/59 O2 Sat by Pulse 97 97 Oximetry 02/22/21 02/22/21 02/22/21 13:33 13:38 13:43 Pulse Rate 74 74 78 Blood Pressure O2 Sat by Pulse 97 96 97 Oximetry 02/22/21 02/22/21 02/22/21 13:48 13:53 13:58 Pulse Rate 93 H 78 79 Blood Pressure 138/63 O2 Sat by Pulse 97 99 100 Oximetry 02/22/21 02/22/21 02/22/21 14:03 14:08 14:13 Pulse Rate 79 74 83 Blood Pressure O2 Sat by Pulse 100 100 100 Oximetry 02/22/21 02/22/21 02/22/21 14:18 14:23 14:28 Pulse Rate 76 69 83 Blood Pressure 128/66 O2 Sat by Pulse 100 100 100 Oximetry 02/22/21 02/22/21 02/22/21 14:33 14:38 14:43 Pulse Rate 75 71 72 Blood Pressure O2 Sat by Pulse 99 99 100 Oximetry 02/22/21 02/22/21 02/22/21 14:48 14:53 14:57 Pulse Rate 75 74 76 Blood Pressure 122/68 O2 Sat by Pulse 99 99 Oximetry 02/22/21 02/22/21 02/22/21 14:58 15:03 15:08 Pulse Rate 76 76 76 Blood Pressure O2 Sat by Pulse 99 99 99 Oximetry 02/22/21 02/22/21 02/22/21 15:13 15:18 15:23 Pulse Rate 78 87 84 Blood Pressure O2 Sat by Pulse 98 96 99 Oximetry 02/22/21 02/22/21 02/22/21 15:27 15:28 15:33 Pulse Rate 78 76 76 Blood Pressure 130/66 O2 Sat by Pulse 99 98 Oximetry 02/22/21 02/22/21 02/22/21 15:38 15:43 15:48 Pulse Rate 74 73 71 Blood Pressure O2 Sat by Pulse 98 98 98 Oximetry 02/22/21 02/22/21 02/22/21 15:53 15:57 15:58 Pulse Rate 72 77 77 Blood Pressure 128/68 O2 Sat by Pulse 98 98 Oximetry 02/22/21 02/22/21 02/22/21 16:03 16:08 16:13 Pulse Rate 84 74 79 Blood Pressure O2 Sat by Pulse 99 98 99 Oximetry 02/22/21 02/22/21 02/22/21 16:18 16:23 16:27 Pulse Rate 75 77 82 Blood Pressure 132/75 O2 Sat by Pulse 98 99 Oximetry 02/22/21 02/22/21 02/22/21 16:28 16:33 16:38 Pulse Rate 90 91 H 79 Blood Pressure O2 Sat by Pulse 100 98 99 Oximetry 02/22/21 02/22/21 02/22/21 16:43 16:48 16:53 Pulse Rate 80 75 76 Blood Pressure O2 Sat by Pulse 97 97 97 Oximetry 02/22/21 02/22/21 02/22/21 16:58 16:59 17:03 Pulse Rate 74 75 80 Blood Pressure 118/57 O2 Sat by Pulse 97 97 Oximetry 02/22/21 02/22/21 02/22/21 17:08 17:13 17:18 Pulse Rate 85 84 86 Blood Pressure O2 Sat by Pulse 100 98 100 Oximetry 02/22/21 02/22/21 02/22/21 17:23 17:27 17:28 Pulse Rate 77 79 80 Blood Pressure 138/69 O2 Sat by Pulse 100 100 Oximetry 02/22/21 02/22/21 02/22/21 17:33 17:38 17:43 Pulse Rate 82 79 81 Blood Pressure O2 Sat by Pulse 100 100 99 Oximetry 02/22/21 02/22/21 02/22/21 17:48 17:53 17:58 Pulse Rate 78 81 75 Blood Pressure 135/68 O2 Sat by Pulse 100 100 100 Oximetry 02/22/21 02/22/21 02/22/21 18:03 18:08 18:13 Pulse Rate 77 81 79 Blood Pressure O2 Sat by Pulse 100 100 100 Oximetry 02/22/21 02/22/21 02/22/21 18:18 18:23 18:27 Pulse Rate 78 79 81 Blood Pressure 112/79 O2 Sat by Pulse 99 99 Oximetry 02/22/21 02/22/21 02/22/21 18:28 18:33 18:38 Pulse Rate 86 77 77 Blood Pressure O2 Sat by Pulse 98 99 98 Oximetry 02/22/21 02/22/21 02/22/21 18:43 18:48 18:53 Pulse Rate 79 76 85 Blood Pressure O2 Sat by Pulse 97 98 99 Oximetry 02/22/21 02/22/21 02/22/21 18:58 18:59 19:03 Pulse Rate 81 78 73 Blood Pressure 116/59 O2 Sat by Pulse 100 98 Oximetry 02/22/21 02/22/21 02/22/21 19:06 19:08 19:13 Pulse Rate 76 78 85 Blood Pressure 128/70 O2 Sat by Pulse 99 99 Oximetry 02/22/21 02/22/21 02/22/21 19:18 19:23 19:27 Pulse Rate 78 75 81 Blood Pressure 129/71 O2 Sat by Pulse 98 98 Oximetry 02/22/21 02/22/21 19:28 19:33 Pulse Rate 76 73 Blood Pressure O2 Sat by Pulse 100 99 Oximetry - Exam Cardiovascular: Regular rate Lungs: Normal air movement Abdomen: Present: normal appearance, soft Vulva: both: normal Uterus: Present: normal FHR: category 1 Uterine Contraction Monitor Mode: External Cervical Dilatation: 5.5 Cervical Effacement Percentage: 80 station: -1 Uterine Contraction Frequency (min): 2-3 Uterine Contraction Duration: 60 Uterine Contraction Pattern: Regular Uterine Tone Measurement Phase: Contraction Uterine Contraction Intensity: Moderate Extremities: normal Deep Tendon Reflex Grade: Normal +2 - Labs Labs: Abnormal Labs 02/21/21 02/21/21 10:36 10:36 RBC 3.40 L Hgb 9.5 L Hct 29.0 L RDW 16.9 H Creatinine 0.3 L Lactate Dehydrogenase 342 H
[2021-02-22] MEDS ORDERED: BUPIVACAINE/PF (0.25%) 2.5 MG/ML 10 ML VIAL INFILTRATI ONE (22:04)
--- NOTE | 2021-02-23 00:05 | Procedure Note ---
OB Delivery Note - Delivery Date of Delivery: 02/23/21 Manager Talent: LAKSHMI PEARSON ([facility] Radha) Estimated blood loss: other (400) - Vaginal Delivery presentation: vertex Delivery position: OA (DELGADO, left hand presented with chin) Intrapartum events: preeclampsia Delivery induction: cervidil Delivery augmentation: rupture of membranes, pitocin Delivery monitor: external FHT, external uterine Route of delivery: Delivery placenta: spontaneous Delivery cord: 3 umbilical vessels Episiotomy: none Delivery laceration: none Anesthesia: epidural Delivery comments: female infant born over intact perineum, placed skin to skin. 3 vessel cord clamped and cut. taken to warmer for assessment. Placenta delivered intact and complete. no lacerations to repair. moderate bleeding after placenta delivered, IM pitocin and Cytotec 800mcg placed. fundus firmed and lochia normal. wt 6#14oz, apgars 8/9. EBL 400. All counts correct. Pt to remain on L&D d/t pre-e, mag sulfate 2gm/hr. - A at 1 minute: 8 at 5 minutes: 9 Infant Gender: Female (6#14oz)
[2021-02-23] MEDS ORDERED: LANOLIN/ZINC/DIMETHICONE (LANSINOH) 7 GM TP PRN (00:55)
[2021-02-23] MEDS ORDERED: MAGNESIUM SULFATE 4 GM/100 ML BAG IV ONE (00:55)
[2021-02-23] MEDS ORDERED: MAGNESIUM HYDROXIDE (MOM) ORAL LIQD UDC PO PRN (00:55)
[2021-02-23] MEDS ORDERED: PROMETHAZINE 25 MG TAB PO PRN (00:55)
[2021-02-23] MEDS ORDERED: diphenhydrAMINE 25 MG CAP PO PRN (00:55)
[2021-02-23] MEDS ORDERED: WITCH HAZEL/ GLYCERIN PAD TP PRN (00:55)
[2021-02-23] MEDS ORDERED: BENZOCAINE/MENTHOL 20/0.5% TOP SPRAY 56 GM TP PRN (00:55)
[2021-02-23] MEDS ORDERED: ACETAMINOPHEN 325 MG TAB PO PRN ×2 (00:55→08:20)
[2021-02-23] MEDS ORDERED: MAGNESIUM SULFATE 40GM/1000ML 40 GM/1,000 ML BAG IV SCH (01:00)
[2021-02-23] MEDS ORDERED: oxyCODONE /ACETAMINOPHEN 5-325MG TAB PO PRN (01:33)
[2021-02-23] MEDS: LACTATED RINGERS 1,000 ML IV SCH ×2 (03:42→17:40)
[2021-02-23] MEDS: IBUPROFEN 800 MG TAB PO SCH ×2 (04:59→17:38)
--- NOTE | 2021-02-23 08:33 | Progress Note ---
Assessment and Plan A: 41 y.o. s/p approximately 5 hours, on mag infusion (pre eclampsia superimposed on cHTN.) P: Continue with magnesium infusion d/t be turned off at midnight. Monitor blood pressures and patient for worsening s/sx of pre eclampsia. Transfer patient to mother/baby once magnesium is turned off and blood pressures remain stable. Subjective - Subjective Date of service: 02/23/21 Principal diagnosis: s/p , on Mag infusion, cHTN super imposed pre eclampsia Patient reports: appetite normal, pain poorly controlled [place]: doing well Objective - Vital Signs Latest vital signs: Vital Signs Temp Pulse Resp BP Pulse Ox Pulse Ox 02/23/21 08:21 79 100 02/23/21 08:16 77 100 02/23/21 08:11 80 100 02/23/21 08:06 72 100 02/23/21 08:01 71 100 02/23/21 07:57 71 108/71 02/23/21 07:56 79 100 02/23/21 07:51 85 100 02/23/21 07:40 85 90 02/23/21 07:38 75 97 02/23/21 07:33 75 96 02/23/21 07:28 75 97 02/23/21 07:27 74 108/60 02/23/21 07:23 77 97 02/23/21 07:18 79 97 02/23/21 07:13 76 97 02/23/21 07:08 80 98 02/23/21 07:03 82 98 02/23/21 06:58 82 99 02/23/21 06:57 81 113/61 02/23/21 06:53 83 99 02/23/21 06:50 85 83 L 02/23/21 06:48 88 98 02/23/21 06:43 88 99 02/23/21 06:38 88 100 02/23/21 06:32 85 99 02/23/21 06:28 92 H 100 02/23/21 06:27 90 125/66 02/23/21 06:23 83 99 02/23/21 06:18 84 98 02/23/21 06:13 88 98 02/23/21 06:08 89 99 02/23/21 06:03 82 98 02/23/21 05:58 85 98 02/23/21 05:57 83 123/58 02/23/21 05:53 87 97 02/23/21 05:48 80 98 02/23/21 05:43 82 99 02/23/21 05:38 79 99 02/23/21 05:33 88 99 02/23/21 05:27 85 127/60 98 02/23/21 05:23 83 98 02/23/21 05:17 87 99 02/23/21 05:12 89 100 02/23/21 05:08 88 100 02/23/21 05:03 90 99 02/23/21 04:59 18 02/23/21 04:57 86 112/61 98 02/23/21 04:52 83 99 02/23/21 04:47 88 100 02/23/21 04:43 85 98 02/23/21 04:38 80 98 02/23/21 04:33 84 98 02/23/21 04:28 82 98 02/23/21 04:27 81 109/57 02/23/21 04:22 84 98 02/23/21 04:17 83 97 02/23/21 04:12 82 98 02/23/21 04:07 83 98 02/23/21 04:03 97 H 98 02/23/21 03:58 94 H 98 02/23/21 03:57 89 118/59 02/23/21 03:52 91 H 96 02/23/21 03:49 87 93 02/23/21 03:48 87 97 02/23/21 03:43 87 97 02/23/21 03:37 85 97 02/23/21 03:32 84 98 02/23/21 03:28 89 97 02/23/21 03:27 88 101/59 02/23/21 03:22 87 97 02/23/21 03:17 87 97 02/23/21 03:12 86 97 02/23/21 03:07 97 H 98 02/23/21 03:02 87 98 02/23/21 02:57 86 118/64 100 02/23/21 02:52 90 99 02/23/21 02:47 91 H 99 02/23/21 02:42 89 100 02/23/21 02:37 89 100 02/23/21 02:33 93 H 100 02/23/21 02:28 89 100 10/29/21 02:27 90 118/63 02/23/21 02:22 91 H 99 02/23/21 02:18 88 98 02/23/21 02:14 88 93/51 02/23/21 02:12 91 H 99 02/23/21 00:57 81 128/61 02/23/21 00:27 99 H 113/59 02/23/21 00:22 88 86 02/23/21 00:19 93 H 100 02/23/21 00:13 80 100 02/23/21 00:09 79 100 02/23/21 00:04 73 100 02/22/21 23:59 73 99 02/22/21 23:57 78 130/65 02/22/21 23:54 80 100 02/22/21 23:53 78 91 02/22/21 23:49 74 100 02/22/21 23:44 77 99 02/22/21 23:39 88 100 02/22/21 23:37 111 H 93 02/22/21 23:33 79 99 02/22/21 23:28 78 99 02/22/21 23:23 81 100 02/22/21 23:18 82 100 02/22/21 23:14 77 99 02/22/21 23:10 82 92 02/22/21 23:09 71 98 02/22/21 23:03 89 99 02/22/21 22:58 82 98 02/22/21 22:54 76 98 02/22/21 22:49 78 99 02/22/21 22:43 85 98 02/22/21 22:39 75 98 02/22/21 22:34 81 100 02/22/21 22:29 75 98 02/22/21 22:28 72 157/79 02/22/21 22:24 72 99 02/22/21 22:19 75 100 02/22/21 22:14 79 100 02/22/21 22:09 88 99 02/22/21 22:04 89 100 02/22/21 21:59 85 131/68 02/22/21 21:58 87 100 02/22/21 21:53 84 100 02/22/21 21:48 91 H 100 02/22/21 21:44 89 100 02/22/21 21:39 96 H 100 02/22/21 21:34 115 H 100 02/22/21 21:29 87 100 02/22/21 21:28 91 H 144/78 02/22/21 21:23 97 H 100 02/22/21 21:19 85 98 02/22/21 21:14 83 99 02/22/21 21:09 75 97 02/22/21 21:04 74 97 02/22/21 20:59 77 97 02/22/21 20:58 71 141/69 02/22/21 20:53 75 97 02/22/21 20:49 73 98 02/22/21 20:43 73 99 02/22/21 20:38 71 98 02/22/21 20:33 68 98 02/22/21 20:28 70 97 02/22/21 20:27 67 130/69 02/22/21 20:23 73 99 02/22/21 20:18 70 99 100 02/22/21 20:13 78 100 02/22/21 20:08 79 100 02/22/21 20:03 89 98 02/22/21 19:58 72 99 02/22/21 19:57 67 136/67 02/22/21 19:53 69 99 02/22/21 19:48 71 100 02/22/21 19:43 77 99 02/22/21 19:38 71 98 02/22/21 19:33 73 99 02/22/21 19:28 76 100 02/22/21 19:27 81 129/71 02/22/21 19:23 75 98 02/22/21 19:18 78 98 02/22/21 19:15 98.4 F 02/22/21 19:13 85 99 02/22/21 19:08 78 99 02/22/21 19:06 76 128/70 02/22/21 19:03 73 98 02/22/21 18:59 78 116/59 02/22/21 18:58 81 100 02/22/21 18:53 85 99 02/22/21 18:48 76 98 02/22/21 18:43 79 97 02/22/21 18:38 77 98 02/22/21 18:33 77 99 02/22/21 18:28 86 98 02/22/21 18:27 81 112/79 02/22/21 18:23 79 99 02/22/21 18:18 78 99 02/22/21 18:13 79 100 10/28/21 18:08 81 100 02/22/21 18:03 77 100 02/22/21 17:58 75 135/68 100 02/22/21 17:53 81 100 02/22/21 17:48 78 100 02/22/21 17:43 81 99 02/22/21 17:38 79 100 02/22/21 17:33 82 100 02/22/21 17:28 80 100 02/22/21 17:27 79 138/69 02/22/21 17:23 77 100 02/22/21 17:18 86 100 02/22/21 17:13 84 98 02/22/21 17:08 85 100 02/22/21 17:03 80 97 02/22/21 16:59 75 118/57 02/22/21 16:58 74 97 02/22/21 16:53 76 97 02/22/21 16:48 75 97 02/22/21 16:43 80 97 02/22/21 16:38 79 99 02/22/21 16:33 91 H 98 02/22/21 16:28 90 100 02/22/21 16:27 82 132/75 02/22/21 16:23 77 99 02/22/21 16:18 75 98 02/22/21 16:13 79 99 02/22/21 16:08 74 98 02/22/21 16:03 84 99 02/22/21 15:58 77 98 02/22/21 15:57 77 128/68 02/22/21 15:53 72 98 02/22/21 15:48 71 98 02/22/21 15:43 73 98 02/22/21 15:38 74 98 02/22/21 15:33 76 98 02/22/21 15:28 76 99 02/22/21 15:27 78 130/66 02/22/21 15:23 84 99 02/22/21 15:18 87 96 02/22/21 15:13 78 98 02/22/21 15:08 76 99 02/22/21 15:03 76 99 02/22/21 14:58 76 99 02/22/21 14:57 76 122/68 02/22/21 14:53 74 99 02/22/21 14:48 75 99 02/22/21 14:43 72 100 02/22/21 14:38 71 99 02/22/21 14:33 75 99 02/22/21 14:28 83 128/66 100 02/22/21 14:23 69 100 02/22/21 14:18 76 100 02/22/21 14:13 83 100 02/22/21 14:08 74 100 02/22/21 14:03 79 100 02/22/21 13:58 79 138/63 100 02/22/21 13:53 78 99 02/22/21 13:48 93 H 97 02/22/21 13:43 78 97 02/22/21 13:38 74 96 02/22/21 13:33 74 97 02/22/21 13:28 76 97 02/22/21 13:27 71 125/59 02/22/21 13:23 75 97 02/22/21 13:18 72 98 02/22/21 13:13 72 100 02/22/21 13:08 71 100 02/22/21 13:03 70 100 02/22/21 12:58 78 128/68 100 02/22/21 12:53 82 99 02/22/21 12:48 75 100 02/22/21 12:43 67 99 02/22/21 12:38 71 100 02/22/21 12:33 69 100 02/22/21 12:28 74 100 02/22/21 12:27 69 128/94 02/22/21 12:23 76 100 02/22/21 12:18 71 100 02/22/21 12:13 71 100 02/22/21 12:08 71 100 02/22/21 12:03 76 100 02/22/21 11:58 70 100 02/22/21 11:57 72 116/56 02/22/21 11:53 75 100 02/22/21 11:48 77 99 02/22/21 11:43 71 100 02/22/21 11:38 65 99 02/22/21 11:33 67 99 02/22/21 11:28 71 116/62 98 02/22/21 11:27 72 94 02/22/21 11:23 70 99 02/22/21 11:18 65 100 02/22/21 11:13 69 98 02/22/21 11:08 70 98 02/22/21 11:03 72 98 02/22/21 10:58 78 96 02/22/21 10:57 72 110/59 02/22/21 10:53 72 98 02/22/21 10:48 73 98 02/22/21 10:43 73 98 02/22/21 10:38 73 98 02/22/21 10:33 76 98 02/22/21 10:29 74 101/56 02/22/21 10:28 75 98 02/22/21 10:23 74 98 02/22/21 10:18 72 99 02/22/21 10:13 71 99 02/22/21 10:08 81 97 02/22/21 10:03 76 97 02/22/21 09:58 75 99 02/22/21 09:56 76 113/56 02/22/21 09:55 78 114/56 02/22/21 09:53 77 99 02/22/21 09:52 74 103/55 02/22/21 09:50 74 103/54 02/22/21 09:48 75 101/53 98 02/22/21 09:46 78 105/55 02/22/21 09:44 75 102/56 02/22/21 09:43 81 99 02/22/21 09:42 75 102/55 02/22/21 09:40 76 111/56 02/22/21 09:38 74 106/58 97 02/22/21 09:36 75 106/59 02/22/21 09:34 71 106/55 02/22/21 09:33 80 99 02/22/21 09:32 73 116/59 02/22/21 09:30 75 109/59 02/22/21 09:28 83 121/62 99 02/22/21 09:26 86 128/65 02/22/21 09:25 81 135/63 02/22/21 09:23 86 99 02/22/21 09:22 106 H 166/95 02/22/21 09:19 77 115/58 02/22/21 09:18 78 100 02/22/21 09:17 80 113/54 02/22/21 09:14 80 122/58 02/22/21 09:13 74 124/58 100 02/22/21 09:09 77 149/80 02/22/21 09:08 73 100 02/22/21 09:06 82 133/73 02/22/21 09:03 76 100 02/22/21 08:58 78 100 02/22/21 08:53 86 100 02/22/21 08:48 87 100 02/22/21 08:43 89 95 02/22/21 08:37 88 100 02/22/21 08:32 82 100 02/22/21 08:27 82 100 02/22/21 08:22 82 99 Intake and Output 02/22/21 02/23/21 02/23/21 22:59 06:59 14:59 Intake Total 91.367 Output Total 625 150 Balance -533.633 -150 Intake: IV 91.367 PITOCin/NS 30 UNIT/500ML 91.367 30 units In 500 ml @ 4 mls/hr IV TITR SETH Rx#: [id number] Output: Urine 625 150 Indwelling Catheter 625 Uretheral (Berg) 150 Other: Total, Output Amount 625 - Exam Narrative Exam: Pt with of severe pain in her perineum that radiates to her back after delivery. Examination completed. No hematomas, lacerations noted. Will order pain medication. She also denies MOSER, blurred vision, spots before her eyes, chest pain, shortness of breath and upper abdominal pain. Blood pressure ranges have been 110's-140's/50-80's. Breasts: Present: deferred Cardiovascular: Present: Regular rate, Normal S1, Normal S2 Lungs: Present: Clear to auscultation Abdomen: Present: normal appearance, soft Vulva: both: normal Uterus: Present: normal, firm Extremities: Present: edema (+1 edema noted to bilateral lower extremitites. ) Deep Tendon Reflex Grade: Dull/Diminished +1 - Labs Labs: Abnormal lab results 02/23/21 Range/Units 05:48 Magnesium 2.80 H (1.7-2.3) mg/dL
[2021-02-23] MEDS: HYDROcodone/ACETAMINOPHEN 5-325 MG TAB PO PRN ×2 (09:58→22:26)
[2021-02-23] MEDS: DOCUSATE SODIUM 100 MG CAP PO SCH ×2 (09:58→22:25)
[2021-02-23] MEDS ORDERED: ACETAMINOPHEN 500 MG TAB PO PRN (10:00)
[2021-02-23 13:25] LABS: Hemoglobin 6.7 gm/dl (10.1-14.3)
--- NOTE | 2021-02-23 13:36 | Post Anesthesia Evaluation ---
- Post Anesthesia Evaluation Patient Participated: Yes Airway Patent: Yes Stable Respiratory Function: Yes Nausea/Vomiting: No Temp > 96.8F: Yes Pain Manageable: Yes Adequeate Hydration: Yes Anesthesia Complications: No Block Receding Appropriately: Yes Patient on Ventilator: No
[2021-02-24] MEDS ORDERED: TETANUS,DIPH,PERTUSS(ACELL) VACCINE 0.5 ML SYRINGE IM ONE (00:07)
[2021-02-24] MEDS: IBUPROFEN 800 MG TAB PO SCH ×3 (00:43→22:19)
[2021-02-24] MEDS ORDERED: SODIUM CHLORIDE 0.9% 500 ML 500 ML IV ONE (05:28)
--- NOTE | 2021-02-24 05:35 | Progress Note ---
Assessment and Plan A: 41 y.o. s/p , mag infusion. Symptomatic anemia after delivery. H/H 6.0/18.0. P: New Type and Screen ordered stat. Transfuse 1 unit of PRBC's. Continue to monitor blood pressures. Continue to monitor for worsening s/sx of pre eclampsia. Subjective - Subjective Date of service: 02/24/21 (Will need blood transfusion.) Principal diagnosis: s/p PPD #2, on Mag infusion, cHTN super imposed pre eclampsia Patient reports: appetite normal, voiding normally, pain well controlled, flatus, ambulating normally [place]: doing well Objective - Vital Signs Latest vital signs: Vital Signs Temp Pulse Resp BP Pulse Ox Pulse Ox 02/24/21 01:43 18 02/24/21 01:01 98.9 F 100 02/24/21 00:53 83 18 117/63 99 02/24/21 00:43 18 02/23/21 22:56 67 0 L 02/23/21 22:48 95 H 0 L 02/23/21 22:26 18 02/23/21 22:25 106 H 0 L 02/23/21 22:20 81 L 02/23/21 22:09 114 H 87 02/23/21 21:23 86 111/60 02/23/21 20:57 91 H 98 02/23/21 20:52 87 97 02/23/21 20:47 90 98 02/23/21 20:42 91 H 98 02/23/21 20:37 90 97 02/23/21 20:32 84 98 02/23/21 20:27 90 97 02/23/21 20:23 88 104/53 02/23/21 20:22 88 97 02/23/21 20:17 93 H 96 02/23/21 20:12 92 H 99 02/23/21 20:07 95 H 98 02/23/21 20:02 92 H 96 02/23/21 19:57 92 H 97 02/23/21 19:52 89 96 02/23/21 19:47 90 96 02/23/21 19:42 87 115/58 90 02/23/21 19:40 100 02/23/21 19:39 166 H 84 02/23/21 19:21 81 L 02/23/21 19:15 82 L 02/23/21 19:10 89 81 L 02/23/21 19:09 82 L 02/23/21 19:05 74 81 L 02/23/21 19:01 80 L 02/23/21 18:56 90 02/23/21 18:50 91 02/23/21 18:48 53 L 85 02/23/21 18:45 152 H 0 L 02/23/21 18:40 47 L 84 02/23/21 18:39 83 L 02/23/21 18:34 70 87 02/23/21 18:29 48 L 90 02/23/21 18:24 81 76 L 02/23/21 18:23 76 L 02/23/21 16:55 89 35 L 02/23/21 16:24 52 L 87 02/23/21 16:20 84 02/23/21 16:19 62 86 02/23/21 16:12 58 L 92 02/23/21 16:09 93 02/23/21 16:05 67 75 L 02/23/21 16:04 82 L 02/23/21 15:59 64 L 02/23/21 15:56 67 65 L 02/23/21 15:53 78 L 02/23/21 15:51 77 84 02/23/21 15:48 75 L 02/23/21 15:42 51 L 76 L 02/23/21 15:38 77 74 L 02/23/21 15:37 70 94 02/23/21 15:31 60 0 L 02/23/21 15:29 84 02/23/21 15:22 32 L 0 L 02/23/21 15:16 72 L 02/23/21 14:47 147 H 77 L 02/23/21 14:36 64 74 L 02/23/21 14:35 38 L 95 02/23/21 14:31 144 H 77 L 02/23/21 14:27 103 H 76 L 02/23/21 14:25 83 L 02/23/21 14:19 145 H 82 L 02/23/21 14:14 83 L 02/23/21 14:11 109 H 100 02/23/21 14:09 89 02/23/21 14:00 87 02/23/21 13:51 57 L 90 02/23/21 13:49 90 02/23/21 13:44 89 44 L 02/23/21 13:43 44 L 02/23/21 13:23 90 134/61 02/23/21 13:16 65 100 02/23/21 12:23 92 H 137/64 02/23/21 11:46 69 96 02/23/21 11:42 50 L 87 02/23/21 11:36 65 74 L 02/23/21 11:34 81 L 02/23/21 11:31 67 98 02/23/21 11:28 75 L 02/23/21 11:27 87 116/59 02/23/21 11:24 100 02/23/21 11:23 85 02/23/21 11:18 66 86 02/23/21 11:16 92 H 98 02/23/21 11:11 88 99 02/23/21 11:10 94 H 86 02/23/21 11:06 86 99 02/23/21 11:01 84 98 02/23/21 10:57 81 111/55 02/23/21 10:55 83 99 02/23/21 10:51 81 97 02/23/21 10:50 90 93 02/23/21 10:46 84 99 02/23/21 10:42 87 91 02/23/21 10:41 89 100 02/23/21 10:35 48 L 79 L 02/23/21 10:31 76 100 02/23/21 10:27 80 130/69 02/23/21 10:26 83 100 02/23/21 10:21 78 100 02/23/21 10:16 88 100 02/23/21 10:11 79 100 02/23/21 10:09 84 92 02/23/21 10:06 79 100 02/23/21 10:02 84 86 02/23/21 10:01 84 100 02/23/21 09:57 85 126/71 02/23/21 09:56 79 100 02/23/21 09:51 85 100 02/23/21 09:46 87 100 02/23/21 09:41 83 100 02/23/21 09:36 95 H 100 02/23/21 09:31 87 100 02/23/21 09:27 80 121/59 02/23/21 09:26 75 99 02/23/21 09:21 82 100 02/23/21 09:17 94 H 94 02/23/21 09:16 82 100 02/23/21 09:11 83 100 02/23/21 09:06 81 100 02/23/21 09:01 81 100 02/23/21 08:57 80 120/68 02/23/21 08:56 83 100 02/23/21 08:51 81 100 02/23/21 08:46 73 100 02/23/21 08:41 87 100 02/23/21 08:36 80 100 02/23/21 08:31 86 99 02/23/21 08:27 90 142/84 02/23/21 08:26 89 100 02/23/21 08:21 79 100 02/23/21 08:16 77 100 02/23/21 08:11 80 100 02/23/21 08:06 72 100 02/23/21 08:02 97.1 F L 20 100 02/23/21 08:01 71 100 02/23/21 07:57 71 108/71 02/23/21 07:56 79 100 02/23/21 07:51 85 100 02/23/21 07:40 85 90 02/23/21 07:38 75 97 02/23/21 07:33 75 96 02/23/21 07:28 75 97 02/23/21 07:27 74 108/60 02/23/21 07:23 77 97 02/23/21 07:18 79 97 02/23/21 07:13 76 97 02/23/21 07:08 80 98 02/23/21 07:03 82 98 02/23/21 06:58 82 99 02/23/21 06:57 81 113/61 02/23/21 06:53 83 99 02/23/21 06:50 85 83 L 02/23/21 06:48 88 98 02/23/21 06:43 88 99 02/23/21 06:38 88 100 02/23/21 06:32 85 99 02/23/21 06:28 92 H 100 02/23/21 06:27 90 125/66 02/23/21 06:23 83 99 02/23/21 06:18 84 98 02/23/21 06:13 88 98 02/23/21 06:08 89 99 02/23/21 06:03 82 98 02/23/21 05:58 85 98 02/23/21 05:57 83 123/58 02/23/21 05:53 87 97 02/23/21 05:48 80 98 02/23/21 05:43 82 99 02/23/21 05:38 79 99 02/23/21 05:33 88 99 Intake and Output 02/23/21 02/23/21 02/24/21 14:59 22:59 06:59 Intake Total 1000 Output Total 3000 800 Balance -2000 -800 Intake: IV 1000 Lactated Ringers 1,000 ml 1000 @ 125 mls/hr IV DIRECT ESTH Rx#:[id number] Output: Urine 3000 800 Indwelling Catheter 3000 800 Other: Total, Output Amount 3000 800 - Exam Narrative Exam: H/H this AM 6.0/18.0. Dry lips and mucus membranes noted. Pt states that she has fatigue, feeling dizzy, and is short of breath. Discussed with patient the need for a blood transfusion at this time d/t her low H/H and now symptomatic. Pt agreed to blood transfusion. Pt states that she has a slight MOSER. Denies upper abdominal pain, spots before her eyes. Blood pressure ranges have been low 100's-140's/60-80's. Cardiovascular: Present: Regular rate Lungs: Present: Normal air movement Abdomen: Present: normal appearance, soft Vulva: both: normal Uterus: Present: normal, firm, other (Light lochia rubra noted.) Extremities: Present: normal - Labs Labs: Abnormal lab results 02/21/21 02/23/21 02/23/21 Range/Units 10:36 05:48 12:53 Hgb 6.7 L (10.1-14.3) gm/dl Hct 20.0 L D (30.3-42.9) % Magnesium 2.80 H (1.7-2.3) mg/dL Crossmatch See Detail 02/23/21 02/23/21 02/24/21 Range/Units 12:53 19:53 04:26 Hgb 6.0 L (10.1-14.3) gm/dl Hct 18.0 L* (30.3-42.9) % Magnesium 2.80 H 2.90 H (1.7-2.3) mg/dL Crossmatch
[2021-02-24] MEDS ORDERED: ALUM-MAG HYDROXIDE-SIMETHICONE 200-200-20MG/5ML ORAL LIQD 30 ML PO PRN (10:57)
[2021-02-24] MEDS ORDERED: FLU VACC QUAD 2021-22(6MOS UP)/PF 60 MCG/0.5 ML SYRINGE IM ONE (12:00)
[2021-02-24 17:58] LABS: Hematocrit 22.8 % (30.3-42.9); Hemoglobin 7.7 gm/dl (10.1-14.3)
[2021-02-24] MEDS: DOCUSATE SODIUM 100 MG CAP PO SCH (22:19)
[2021-02-25] MEDS: IBUPROFEN 800 MG TAB PO SCH (06:26)
--- NOTE | 2021-02-25 11:04 | Progress Note ---
Assessment and Plan - Patient Problems (1) Blood transfusion during current hospitalization Current Visit: Yes Status: Acute (2) Maternal blood transfusion Current Visit: Yes Status: Acute (3) (normal spontaneous vaginal delivery) Current Visit: Yes Status: Acute (4) mood disturbance Current Visit: Yes Status: Acute Plan to address problem: Patient would need an Gamez score of 12 oh will be evaluated by psychiatrist prior to discharge. (5) Acute blood loss anemia Current Visit: Yes Status: Acute Plan to address problem: Patient says she feels better after the transfusion 1 unit of packed red blood cells Subjective - Subjective Date of service: 02/25/21 Principal diagnosis: s/p PPD #2, on Mag infusion, cHTN super imposed pre eclampsia Interval history: Patient went into burning score of 12 but states she feels amazing after blood transfusion Patient reports: appetite normal, voiding normally, pain well controlled, ambulating normally : in NICU Objective - Vital Signs Latest vital signs: Vital Signs Temp Pulse Resp BP BP Pulse Ox Pulse Ox 02/25/21 08:32 100 02/25/21 07:45 97.8 F 72 16 153/80 100 02/25/21 06:26 18 02/25/21 04:55 98.2 F 76 20 136/76 100 02/25/21 00:42 97.5 F L 85 20 134/71 100 02/24/21 23:19 18 02/24/21 22:19 18 02/24/21 20:44 98.2 F 87 20 138/74 100 02/24/21 20:00 100 02/24/21 15:44 97.6 F 82 18 142/71 100 02/24/21 15:23 20 02/24/21 11:23 98.7 F 75 20 110/61 99 Intake and Output 02/24/21 02/25/21 02/25/21 22:59 06:59 14:59 Intake Total 780 Output Total 700 Balance 80 Intake: Oral 780 Output: Urine 700 Void 700 Other: Total, Intake Amount 240 Total, Output Amount 300 # Voids Void 1 - Exam Breasts: Present: deferred Cardiovascular: Present: Regular rate Lungs: Present: Normal air movement Abdomen: Present: normal appearance, soft Uterus: Present: firm - Labs Labs: Abnormal lab results 02/24/21 02/24/21 Range/Units 06:00 17:49 Hgb 7.7 L (10.1-14.3) gm/dl Hct 22.8 L (30.3-42.9) % Crossmatch See Detail
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
[2021-02-25] MEDS ORDERED: SERTRALINE 25 MG TAB PO SCH (13:00)
[2021-02-25 14:22] VITALS: BP 136/78
--- NOTE | 2021-02-25 14:39 | Discharge Summary ---
Providers - Providers Date of Admission: 02/21/21 09:32 Date of discharge: 02/25/21 Attending physician: DIEGO JAIME 02/23/21 00:55 Consult to Manager [CONS] Routine Reason For Exam: assistance with , SNS 02/25/21 08:00 Consult to Mental Health [CONS] Routine Reason For Exam: possible depression Primary care physician: DIEGO JAIME Hospitalization Reason for admission: induction of labor, IUP at term Delivery: Procedure details: See delivery note in chart for details Episiotomy: none Laceration: none Other procedures: other (Blood transfusion) complications: transfusion, other Discharge diagnosis: IUP at term delivered, other (Acute blood loss anemia, mood disorder) baby: female Pertinent studies: Mental health consultation blood transfusion Hospital course: See dictated H&P. Patient was admitted underwent a normal spontaneous vaginal delivery. Her course was complicated by acute blood loss anemia and mood disturbance. She was afebrile throughout her stay. Her day 1 hematocrit was 18% and increased to 22% after 1 unit of packed red blood cells. Patient was evaluated with psychiatry, who recommended Zofran and trazodone with a outpatient follow-up in 7 days. Condition at discharge: Good Disposition: 01 HOME / SELF CARE / HOMELESS - Discharge Diagnoses (1) Blood transfusion during current hospitalization Status: Acute (2) Maternal blood transfusion Status: Acute (3) (normal spontaneous vaginal delivery) Status: Acute (4) mood disturbance Status: Acute (5) Acute blood loss anemia Status: Acute Plan - Discharge Medications Prescriptions: traZODone [Desyrel] 50 mg PO QHS 30 Days #30 tab Ferrous Sulfate [Feosol 325 MG tab] 325 mg PO BID #60 tablet Ibuprofen [Motrin] 800 mg PO TID PRN #30 tablet PRN Reason: Pain Sertraline [Zoloft] 25 mg PO QDAY 30 Days #30 tab - Provider Discharge Summary Activity: routine, no sex for 6 weeks, no heavy lifting 4 weeks Diet: routine Instructions: routine Additional instructions: [] Smoking cessation referral if applicable(refer to patient education folder for contact #) [] Refer to [facility]'s [facility] Booklet Call your doctor immediately for: * Fever > 100.5 * Heavy vaginal bleeding ( >1 pad per hour) * Severe persistent headache * Shortness of breath * Reddened, hot, painful area to leg or breast * Drainage or odor from incision. *Patient to follow-up in office in 1 week and also with outpatient psychiatry in 1 week - Follow up plan Follow up: DIEGO JAIME MD [Primary Care Provider] - 7 Days
[2021-02-25] MEDS ORDERED: traZODone 50 MG TAB PO SCH (22:00)
--- NOTE | 2021-02-27 18:46 | Electrocardiograph Report ---
[facility] Test Date: 2021-02-24 Test Time: 11:52:36 Pat Name: KATELIN GALO Department: Room: [facility] 1 Gender: F Duct Layer: ROXI : 1980 Requested By: STEPHANIE ANDERSEN Order Number: [id number] Reading MD: Alok Diaz Measurements Intervals [place] Rate: 75 P: 26 SC: 150 QRS: 29 QRSD: 88 T: 31 QT: 404 QTc: 452 Interpretive Statements Sinus rhythm Compared to ECG 10/30/2020 19:58:16 No significant changes Electronically Signed On 02-27-2021 18:45:50 EDT by Alok Diaz
== END 2021-02-25 15:45 | disposition home or self-care (01) | DRG 775 ==
LOC: TRG 09:31 → LD 09:32 → TRG 09:54 → OB 02-24 00:34
PROVIDERS: ADMIT Obstetrics & Gynecology; ATTEND Obstetrics & Gynecology
PROC: 10E0XZZ Delivery of Products of Conception, External Approach (ICD-10-PCS; principal; 2021-02-23)
PROC: 3E0R3BZ Introduction of Anesthetic Agent into Spinal Canal, Percutaneous Approach (ICD-10-PCS; 2021-02-23)
PROC: 00HU33Z Insertion of Infusion Device into Spinal Canal, Percutaneous Approach (ICD-10-PCS; 2021-02-23)
PROC: 30233N1 Transfusion of Nonautologous Red Blood Cells into Peripheral Vein, Percutaneous Approach (ICD-10-PCS; 2021-02-24)
PROC: 3E0234Z Introduction of Serum, Toxoid and Vaccine into Muscle, Percutaneous Approach (ICD-10-PCS; 2021-02-24)
DX: O11.4 Pre-existing hypertension with pre-eclampsia, complicating childbirth (principal); Z3A.37 37 weeks gestation of pregnancy; O99.52 Diseases of the respiratory system complicating childbirth; Z37.0 Single live birth; O90.6 Postpartum mood disturbance; O90.81 Anemia of the puerperium; D62 Acute posthemorrhagic anemia; Z20.822 Contact with and (suspected) exposure to COVID-19; J45.909 Unspecified asthma, uncomplicated; Z23 Encounter for immunization; D58.1 Hereditary elliptocytosis; O75.89 Other specified complications of labor and delivery
CPT/HCPCS: 36415; 59025; 59200; 82565; 83615; 83735; 84450; 84460; 84550; 85014; 85018; 85027; 86592; 86850; 86900; 86901; 86920; 93005; 96360; 96361; 96365; 96367; 96372; G0378; J0595; J1200; J2405; J2590; J3475; J3490; J7040; J7120; P9016; Q0169; U0003